=== PATIENT | female | born 1980 | race Caucasian/White ===

== ENCOUNTER 2020-09-02 11:57 | Inpatient (IN) | payer BC ==
[2020-09-02] MEDS ORDERED: ACETAMINOPHEN TAB 500 MG TAB PO STA (12:35)
[2020-09-02] MEDS ORDERED: IBUPROFEN 600 MG TAB PO STA (12:35)
--- NOTE | 2020-09-02 12:35 | ED ---
Fever HPI - General Chief Complaint: Shortness of Breath Stated Complaint: SOB Time Seen by Provider: 09/02/20 12:17 Source: patient, RN notes reviewed, old records reviewed Mode of arrival: wheelchair Limitations: no limitations - History of Present Illness Initial Comments: Luisana is a 40-year-old female DF regards to shortness of breath persistent david rtness of breath cough and congestion. No fevers no travel history no sick contacts. Patient has worsening shortness of breath fever started today symptoms started last week. Symptoms progressively worse MD Complaint: fever, malaise, weakness -: days(s) Temperature Source: subjective Context: multiple patients with similar symptoms Associated Symptoms: chills, myalgias, shortness of breath, nausea Treatments Prior to Arrival: none - Related Data Allergies Allergy/AdvReac Type Severity Reaction Status Date / Time No Known Allergies Allergy Verified 09/02/20 12:12 Review of Systems ROS Statement: Those systems with pertinent positive or pertinent negative responses have been documented in the HPI. ROS Other: All systems not noted in ROS Statement are negative. Past Medical History Past Medical History: Diabetes Mellitus History of Any Multi-Drug Resistant Organisms: None Reported Past Surgical History: Orthopedic Surgery Additional Past Surgical History / Comment(s): lt wrist Past Psychological History: No Psychological Hx Reported Smoking Status: Never smoker Past Alcohol Use History: None Reported Past Drug Use History: None Reported General Exam Limitations: no limitations General appearance: alert, in no apparent distress Head exam: Present: atraumatic, normocephalic, normal inspection Eye exam: Present: normal appearance, PERRL, EOMI. Absent: scleral icterus, conjunctival injection, periorbital swelling ENT exam: Present: normal exam, mucous membranes moist Neck exam: Present: normal inspection. Absent: tenderness, meningismus, lymphadenopathy Respiratory exam: Present: normal lung sounds bilaterally. Absent: respiratory distress, wheezes, rales, rhonchi, stridor Cardiovascular Exam: Present: regular rate, normal rhythm, normal heart sounds. Absent: systolic murmur, diastolic murmur, rubs, gallop, clicks GI/Abdominal exam: Present: soft, normal bowel sounds. Absent: distended, tenderness, guarding, rebound, rigid Extremities exam: Present: normal inspection, full ROM, normal capillary refill. Absent: tenderness, pedal edema, joint swelling, calf tenderness Back exam: Present: normal inspection Neurological exam: Present: alert, oriented X3, CN II-XII intact Psychiatric exam: Present: normal affect, normal mood Skin exam: Present: warm, dry, intact, normal color. Absent: rash Course Vital Signs 09/02/20 09/02/20 09/02/20 12:09 12:50 14:09 Temperature 103.4 F H 100.1 F H Pulse Rate 117 H 105 H 90 Respiratory 28 H 22 18 Rate Blood Pressure 131/75 124/89 105/75 O2 Sat by Pulse 89 L 94 L 98 Oximetry - Reevaluation(s) Reevaluation #1: 09/02/20 14:25 medical record is reviewed Reevaluation #2: 09/02/20 14:32 PATIENT IS FEELING BETTER HERE IN THE erWITH BLOOD PRESSURE CONTROL Reevaluation #3: 09/02/20 14:33 PATIENT INFORMED OF FINDINGS HERE IN THE er, QUESTIONS ANSWERED - Consultations Consultation #1: spoke w Dr Terence li for admission Medical Decision Making - Medical Decision Making 40 female with positive pneumonia rule out coronavirus will be admitted for breathing treatments as needed car door cardiopulmonary respiratory support his oxygen does tend to run low, does have pneumonia on x-ray - Lab Data Result diagrams: 09/02/20 12:27 09/02/20 12:27 Lab Results 09/02/20 09/02/20 09/02/20 Range/Units 12:27 12:27 12:27 WBC 5.0 (3.8-10.6) k/uL RBC 4.55 (3.80-5.40) m/uL Hgb 13.3 (11.4-16.0) gm/dL Hct 41.2 (34.0-46.0) % MCV 90.6 (80.0-100.0) fL MCH 29.2 (25.0-35.0) pg MCHC 32.2 (31.0-37.0) g/dL RDW 13.2 (11.5-15.5) % Plt Count 190 (150-450) k/uL Neutrophils % 80 % Lymphocytes % 13 % Monocytes % 5 % Eosinophils % 0 % Basophils % 1 % Neutrophils # 4.0 (1.3-7.7) k/uL Lymphocytes # 0.6 L (1.0-4.8) k/uL Monocytes # 0.2 (0-1.0) k/uL Eosinophils # 0.0 (0-0.7) k/uL Basophils # 0.0 (0-0.2) k/uL PT 9.8 (9.0-12.0) sec INR 0.9 (<1.2) APTT 23.3 (22.0-30.0) sec Sodium 137 (137-145) mmol/L Potassium 4.1 (3.5-5.1) mmol/L Chloride 101 (98-107) mmol/L Carbon Dioxide 27 (22-30) mmol/L Anion Gap 9 mmol/L BUN 14 (7-17) mg/dL Creatinine 0.71 (0.52-1.04) mg/dL Est GFR (CKD-EPI)AfAm >90 (>60 ml/min/1.73 sqM) Est GFR (CKD-EPI)NonAf >90 (>60 ml/min/1.73 sqM) Glucose 177 H (74-99) mg/dL Plasma Lactic Acid Gabo (0.7-2.0) mmol/L Calcium 8.9 (8.4-10.2) mg/dL Magnesium 2.0 (1.6-2.3) mg/dL Total Bilirubin 0.7 (0.2-1.3) mg/dL AST 65 H (14-36) U/L ALT 58 H (4-34) U/L Alkaline Phosphatase 62 (38-126) U/L Lactate Dehydrogenase 835 H (313-618) U/L C-Reactive Protein 33.9 H (<10.0) mg/L Total Protein 8.0 (6.3-8.2) g/dL Albumin 4.5 (3.5-5.0) g/dL 09/02/20 Range/Units 12:27 WBC (3.8-10.6) k/uL RBC (3.80-5.40) m/uL Hgb (11.4-16.0) gm/dL Hct (34.0-46.0) % MCV (80.0-100.0) fL MCH (25.0-35.0) pg MCHC (31.0-37.0) g/dL RDW (11.5-15.5) % Plt Count (150-450) k/uL Neutrophils % % Lymphocytes % % Monocytes % % Eosinophils % % Basophils % % Neutrophils # (1.3-7.7) k/uL Lymphocytes # (1.0-4.8) k/uL Monocytes # (0-1.0) k/uL Eosinophils # (0-0.7) k/uL Basophils # (0-0.2) k/uL PT (9.0-12.0) sec INR (<1.2) APTT (22.0-30.0) sec Sodium (137-145) mmol/L Potassium (3.5-5.1) mmol/L Chloride (98-107) mmol/L Carbon Dioxide (22-30) mmol/L Anion Gap mmol/L BUN (7-17) mg/dL Creatinine (0.52-1.04) mg/dL Est GFR (CKD-EPI)AfAm (>60 ml/min/1.73 sqM) Est GFR (CKD-EPI)NonAf (>60 ml/min/1.73 sqM) Glucose (74-99) mg/dL Plasma Lactic Acid Gabo 2.5 H* (0.7-2.0) mmol/L Calcium (8.4-10.2) mg/dL Magnesium (1.6-2.3) mg/dL Total Bilirubin (0.2-1.3) mg/dL AST (14-36) U/L ALT (4-34) U/L Alkaline Phosphatase (38-126) U/L Lactate Dehydrogenase (313-618) U/L C-Reactive Protein (<10.0) mg/L Total Protein (6.3-8.2) g/dL Albumin (3.5-5.0) g/dL - EKG Data -: EKG Interpreted by Me (EKG is sinus tachycardia 106 RI 140 QRS 88) - Radiology Data Radiology results: report reviewed (chest x-rays negative for acute disease), image reviewed Critical Care Time Critical Care Time: Yes Total Critical Care Time: 31 Disposition Clinical Impression: Fever, Community acquired pneumonia, Hypoxia Disposition: ADMITTED IP TO THIS [facility] Condition: Fair Is patient prescribed a controlled substance at d/c from ED?: No Referrals: Thomas Pratt DO [Primary Care Provider] - 1-2 days
--- NOTE | 2020-09-02 13:00 | XR ---
EXAMINATION TYPE: XR chest 1V portable DATE OF EXAM: 09/02/2020 COMPARISON: NONE HISTORY: Suspected Covid 19 pneumonia, weakness and difficulty breathing, fever TECHNIQUE: Single frontal view of the chest is obtained. FINDINGS: Lung volumes are low and the patient is rotated. Patchy bilateral increased density presen t within the lungs. Heart is within normal limits for size accounting for technique, rotation. No karina dent pneumothorax or pleural effusion. IMPRESSION: Findings could be indicative of pneumonia. Expiratory rotated exam.
[2020-09-02 13:04] LABS: Basophils % (A) 1 %; Eosinophils % (A) 0 %; HCT 41.2 % (34.0-46.0); HGB 13.3 gm/dL (11.4-16.0); Lymphocytes # (A) 0.6 k/uL (1.0-4.8); Lymphocytes % (A) 13 %; MCH 29.2 pg (25.0-35.0); MCHC 32.2 g/dL (31.0-37.0); MCV 90.6 fL (80.0-100.0); Mean Platelet Volume 10.1; Monocytes # (A) 0.2 k/uL (0-1.0); Monocytes % (A) 5 %; Neutrophils % (A) 80 %; Platelet Count 190 k/uL (150-450); RBC 4.55 m/uL (3.80-5.40); RDW 13.2 % (11.5-15.5)
[2020-09-02 13:05] LABS: INR 0.9 (<1.2); Partial Thromboplastin Time 23.3 sec (22.0-30.0); Prothrombin Time 9.8 sec (9.0-12.0)
[2020-09-02 13:13] LABS: ALT 58 U/L (4-34); AST 65 U/L (14-36); African American GFR (CKD) >90 (>60 ml/min/1.73 sqM); Albumin 4.5 g/dL (3.5-5.0); Alkaline Phosphatase 62 U/L (38-126); Anion Gap 9 mmol/L; Blood Urea Nitrogen 14 mg/dL (7-17); C Reactive Protein 33.9 mg/L (<10.0); Calcium 8.9 mg/dL (8.4-10.2); Carbon Dioxide 27 mmol/L (22-30); Chloride 101 mmol/L (98-107); Glucose 177 mg/dL (74-99); LDH 835 U/L (313-618); Non-African American GFR(CKD) >90 (>60 ml/min/1.73 sqM); Sodium 137 mmol/L (137-145); Total Bilirubin 0.7 mg/dL (0.2-1.3)
[2020-09-02 13:20] LABS: Potassium 4.1 mmol/L (3.5-5.1)
[2020-09-02] MEDS ORDERED: AZITHROMYCIN 500 MG in SODIUM CHLORIDE 0.9% 250 ML IVPB STA (14:19)
[2020-09-02] MEDS ORDERED: PNEUMONIA PROTOCOL UTILIZED 1 EACH MISC PO PRN (14:19)
[2020-09-02] MEDS ORDERED: SODIUM CHLORIDE 0.9% 1,000 ML IV STA (14:23)
[2020-09-02] MEDS ORDERED: SODIUM CHLORIDE 0.9% 500 ML 500 ML IV STA (14:23)
[2020-09-02] MEDS: SODIUM CHLORIDE 0.9% 1,000 ML IV SCH (15:10)
[2020-09-02] MEDS ORDERED: IPRATROPIUM-ALBUTEROL 3 ML NEB INHALATION SCH (16:00)
[2020-09-02] MEDS: ALBUTEROL HFA INHALER INHALATION SCH ×2 (16:56→19:35)
--- NOTE | 2020-09-02 17:50 | P.CNPUL ---
History of Present Illness Consult date: 09/02/20 Requesting physician: Thomas Pratt Reason for consult: abnormal CXR/CT Chief complaint: Shortness of breath, cough, fever History of present illness: This is a very pleasant 40-year-old female patient who follows with Dr. Pratt as her primary care provider. No significant past medical history. No pulmonary medications. She presented here to the emergency room today with complaints of increasing shortness of breath, cough congestion. Symptoms started approximately 1 week ago. She has had some fever or malaise and weakness as well. She is seen today in consultation in the emergency room. She is currently sitting up in the stretcher. Awake and alert in no acute distress. Initial O2 saturation on room air 89%. Currently in the 90s on 2 L/m per nasal cannula. T-max 103.4. Currently 100.1. Chest x-ray reveals bilateral patchy increased density within the lungs. White count 5.0. Hemoglobin 13.3. Sodium 137. Potassium 4.1. Creatinine 0.71. Initial lactic acid 2.5 currently 0.8. Glucose 177. LDH 835. C-reactive protein 33.9. Blood cultures pending. Anderson virus by PCR pending. She's been initiated on ceftriaxone, azithromycin, 0.9 normal saline at 100 ML's per hour. Review of Systems REVIEW OF SYSTEMS: CONSTITUTIONAL: Weakness, fatigue, fevers. Denies any recent significant weight loss or weight gain. EYES: Denies change in vision. EARS, NOSE, MOUTH, THROAT: Denies headaches, denies sore throat. CARDIOVASCULAR: Denies chest pain, palpitations or syncopal episodes. RESPIRATORY: Positive for shortness of breath, cough, congestion no hemoptysis. GASTROINTESTINAL: Denies change in appetite, denies abdominal pain GENITOURINARY: Denies hematuria, denies infections. MUSKULOSKELETAL: Denies pain, denies swelling. INTEGUMENTARY: Denies rash, denies eczema. NEUROLOGICAL: Denies recent memory loss, no recent seizure activity. PSYCHIATRIC: Denies anxiety, denies depression. HEMATOLOGIC/LYMPHATIC: Denies anemia, denies enlarged lymph nodes. Past Medical History Past Medical History: Diabetes Mellitus History of Any Multi-Drug Resistant Organisms: None Reported Past Surgical History: Orthopedic Surgery Additional Past Surgical History / Comment(s): lt wrist Past Psychological History: No Psychological Hx Reported Smoking Status: Never smoker Past Alcohol Use History: None Reported Past Drug Use History: None Reported Medications and Allergies Home Medications Medication Instructions Recorded Confirmed Type No Known Home Medications 09/02/20 09/02/20 History Allergies Allergy/AdvReac Type Severity Reaction Status Date / Time No Known Allergies Allergy Verified 09/02/20 15:38 Physical Exam Vitals: Vital Signs Temp Pulse Resp BP Pulse Ox 09/02/20 16:06 77 18 107/76 96 09/02/20 14:09 100.1 F H 90 18 105/75 98 09/02/20 12:50 105 H 22 124/89 94 L 09/02/20 12:09 103.4 F H 117 H 28 H 131/75 89 L Intake and Output 09/02/20 09/02/20 09/02/20 06:59 14:59 22:59 Other: Weight 113.398 kg GENERAL EXAM: Alert, pleasant 40-year-old female patient, on 2 L nasal cannula, comfortable in no apparent distress. HEAD: Normocephalic. EYES: Normal reaction of pupils, equal size. NOSE: Clear with pink turbinates. THROAT: No erythema or exudates. NECK: No masses, no JVD. CHEST: No chest wall deformity. LUNGS: Equal air entry with scattered rhonchi bilaterally. CVS: S1 and S2 normal with no audible murmur, regular rhythm. ABDOMEN: No hepatosplenomegaly, normal bowel sounds, no guarding or rigidity. SPINE: No scoliosis or deformity SKIN: No rashes CENTRAL NERVOUS SYSTEM: No focal deficits, tone is normal in all 4 extremities. EXTREMITIES: There is no peripheral edema. No clubbing, no cyanosis. Peripheral pulses are intact. Results - Laboratory Findings CBC and BMP: 09/02/20 12:27 09/02/20 12:27 PT/INR, D-dimer PT 9.8 sec (9.0-12.0) 09/02/20 12:27 INR 0.9 (<1.2) 09/02/20 12:27 Abnormal lab findings: Abnormal Labs 09/02/20 09/02/20 09/02/20 12:27 12:27 12:27 Lymphocytes # 0.6 L Glucose 177 H Plasma Lactic Acid Gabo 2.5 H* AST 65 H ALT 58 H Lactate Dehydrogenase 835 H C-Reactive Protein 33.9 H - Diagnostic Findings Chest x-ray: image reviewed (Bilateral patchy opacities) Assessment and Plan Assessment: 1 Acute hypoxic respiratory failure secondary to suspected CoVID 19 pneumonitis 2 Febrile illness secondary to above 3 Elevated inflammatory markers secondary to above Plan: The patient was seen and evaluated by Dr. Rocha Chest x-ray and labs reviewed Covid 19 screen pending We'll initiate Remdesivir, dexamethasone Add vitamin C, D, zinc, Pepcid, melatonin Continue isolation precautions We will continue to follow and make further recommendations based on her clinical status I, the cosigning physician, performed a history & physical examination of the patient. Lungs sounds with bilateral scattered rhonchi. Maintaining good O2 saturations in the 90s on 2 L/m per nasal cannula. I discussed the assessment and plan of care with my nurse practitioner, Molly Clifford. I attest to the above consultation as dictated by her. Time with Patient: Greater than 30
[2020-09-02] MEDS: CHOLECALCIFEROL 1,000 UNIT TAB PO SCH (19:35)
[2020-09-02] MEDS: FAMOTIDINE 20 MG TAB PO SCH (19:36)
[2020-09-02] MEDS: ENOXAPARIN 40 MG/0.4 ML SYRINGE SQ SCH (19:36)
[2020-09-02] MEDS: ASCORBIC ACID 500 MG TAB PO SCH (19:36)
[2020-09-02] MEDS ORDERED: REMDESIVIR (EUA) 200 MG in SODIUM CHLORIDE 0.9% 250 ML IVPB ONE (21:00)
[2020-09-02] MEDS: MELATONIN 5 MG TABLET PO SCH (21:31)
[2020-09-02] MEDS: dexAMETHasone 2 MG TAB PO SCH (21:31)
[2020-09-02] MEDS: ZINC SULFATE 220 MG CAP PO SCH (21:31)
[2020-09-03] MEDS: ALBUTEROL HFA INHALER INHALATION SCH ×4 (01:12→19:55)
[2020-09-03] MEDS: SODIUM CHLORIDE 0.9% 1,000 ML IV SCH ×3 (01:20→23:16)
[2020-09-03] MEDS ORDERED: ACETAMINOPHEN TAB 325 MG TAB PO PRN (02:24)
[2020-09-03 07:11] LABS: Glucose,Whole Blood 207 mg/dL (75-99)
[2020-09-03] MEDS: ASCORBIC ACID 500 MG TAB PO SCH (08:32)
[2020-09-03] MEDS: CHOLECALCIFEROL 1,000 UNIT TAB PO SCH (08:32)
[2020-09-03] MEDS: ZINC SULFATE 220 MG CAP PO SCH (08:32)
[2020-09-03] MEDS: ENOXAPARIN 40 MG/0.4 ML SYRINGE SQ SCH (08:32)
[2020-09-03] MEDS: dexAMETHasone 2 MG TAB PO SCH (08:32)
[2020-09-03] MEDS: FAMOTIDINE 20 MG TAB PO SCH (08:32)
--- NOTE | 2020-09-03 09:58 | XR ---
EXAMINATION TYPE: XR chest 1V portable DATE OF EXAM: 09/03/2020 COMPARISON: 09/02/2020 HISTORY: Shortness of breath TECHNIQUE: Single frontal view of the chest is obtained. FINDINGS: Limited inspiration with cardiomegaly and multifocal areas of consolidation with pleural e ffusion. No pneumothorax. Findings are stable. IMPRESSION: Stable multifocal changes correlate for multifocal pneumonia. Underlying CHF not exclude d.
[2020-09-03 11:40] LABS: Glucose,Whole Blood 224 mg/dL (75-99)
--- NOTE | 2020-09-03 13:17 | P.HPIM ---
History of Present Illness This is a pleasant 40 years old female with past medical history of diabetes mellitus not on home medication. Presents yesterday to the emergency room with fever and shortness of breath with chest congestion Vitas looks stable currently however patient was febrile with 1 or 3.4 on admission . Currently her oxygen saturation is 92% and 2-3 L oxygen via nasal cannula. She still have some orthopnea and dyspnea and she looks generally weak with malaise. Labs look unremarkable including CBC except for leukopenia with 0.6K. D-dimer is negative at 0.28. proCalcitonin is negative at 0.09. BMP is unremarkable liver enzymes are mildly elevated with AST 65 and ALT 58. C-reactive protein is elevated as well as 33.9 Chest x-ray showing multifocal pneumonia. EKG: Sinus tachycardia at 106, no significant ST-T changes covid testis is pending patient is a started on Remdesivir, dexamethasone and zinc sulfate Review of Systems CONSTITUTIONAL: No fever, no malaise, no fatigue. HEENT: No recent visual problems or hearing problems. Denied any sore throat. CARDIOVASCULAR: No orthopnea, PND, no palpitations, no syncope. PULMONARY: No chest wall tenderness, no hemoptysis. GASTROINTESTINAL: No diarrhea, no nausea, no vomiting, no abdominal pain. Normoactive bowel sounds. NEUROLOGICAL: No headaches, no weakness, no numbness. HEMATOLOGICAL: Denies any bleeding or petechiae. GENITOURINARY: Denies any burning micturition, frequency, or urgency. MUSCULOSKELETAL/RHEUMATOLOGICAL: Denies any joint pain, swelling, or any muscle pain. ENDOCRINE: Denies any polyuria or polydipsia. Past Medical History Past Medical History: Diabetes Mellitus History of Any Multi-Drug Resistant Organisms: None Reported Past Surgical History: Orthopedic Surgery Additional Past Surgical History / Comment(s): lt wrist Past Anesthesia/Blood Transfusion Reactions: No Reported Reaction Past Psychological History: No Psychological Hx Reported Smoking Status: Never smoker Past Alcohol Use History: None Reported Past Drug Use History: None Reported - Past Family History Father Family Medical History: Congestive Heart Failure (CHF) Additional Family Medical History / Comment(s): AAA Medications and Allergies Home Medications Medication Instructions Recorded Confirmed Type No Known Home Medications 09/02/20 09/02/20 History Allergies Allergy/AdvReac Type Severity Reaction Status Date / Time No Known Allergies Allergy Verified 09/02/20 15:38 Physical Exam Vitals: Vital Signs Temp Pulse Pulse Resp BP BP Pulse Ox 09/03/20 07:00 98.3 F 84 115/77 92 L 09/03/20 06:06 98.4 F 09/03/20 01:34 101.7 F H 103 H 126/83 91 L 09/02/20 21:08 98.8 F 87 124/87 95 09/02/20 20:34 99 F 74 20 110/72 98 09/02/20 18:48 82 18 114/76 98 09/02/20 16:06 77 18 107/76 96 09/02/20 14:09 100.1 F H 90 18 105/75 98 Intake and Output 09/02/20 09/03/20 09/03/20 22:59 06:59 14:59 Other: Weight 113.398 kg GENERAL: The patient is alert and oriented x3, not in any acute distress. Well developed, well nourished. HEENT: Pupils are round and equally reacting to light. EOMI. No scleral icterus. No conjunctival pallor. Normocephalic, atraumatic. No pharyngeal erythema. No thyromegaly. CARDIOVASCULAR: S1 and S2 present. No murmurs, rubs, or gallops. -PULMONARY: Chest is clear to auscultation, no wheezing . Bilateral scattered crepitation ABDOMEN: Soft, nontender, nondistended, normoactive bowel sounds. No palpable organomegaly. MUSCULOSKELETAL: No joint swelling or deformity. EXTREMITIES: No cyanosis, clubbing, or pedal edema. NEUROLOGICAL: Gross neurological examination did not reveal any focal deficits. SKIN: No rashes. No petechiae Results CBC & Chem 7: 09/02/20 12:27 09/02/20 12:27 Labs: Abnormal Lab Results - Last 24 Hours (Table) 09/02/20 09/02/20 09/03/20 Range/Units 12:27 12:27 07:00 Glucose 177 H (74-99) mg/dL POC Glucose (mg/dL) 207 H (75-99) mg/dL Plasma Lactic Acid Gabo 2.5 H* (0.7-2.0) mmol/L AST 65 H (14-36) U/L ALT 58 H (4-34) U/L Lactate Dehydrogenase 835 H (313-618) U/L C-Reactive Protein 33.9 H (<10.0) mg/L 09/03/20 Range/Units 11:39 Glucose (74-99) mg/dL POC Glucose (mg/dL) 224 H (75-99) mg/dL Plasma Lactic Acid Gabo (0.7-2.0) mmol/L AST (14-36) U/L ALT (4-34) U/L Lactate Dehydrogenase (313-618) U/L C-Reactive Protein (<10.0) mg/L Thrombosis Risk Factor Assmnt - Choose All That Apply Any of the Below Risk Factors Present?: Yes Each Factor Represents 1 point: Age 41-60 years, Obesity (BMI >25) Other Risk Factors: No Other congenital or acquired thrombophilia - If yes, enter type in comment: No Thrombosis Risk Factor Assessment Total Risk Factor Score: 2 Thrombosis Risk Factor Assessment Level: Low Risk Assessment and Plan Assessment: Acute covid infection Increase inflammatory markers Hyperglycemia, and review of history of diabetes mellitus Plan: This is a pleasant 38 years old female who presents with bilateral covid pneumonia. However official covid this is still pending. Continue with Remdesivir, dexamethasone and zinc sulfate Check hemoglobin A1c. Monitor liver enzymes Labs and medication were reviewed.. Continue same treatment. Continue with symptomatic treatment. Resume home medication. Monitor lytes and vitals. DVT and GI prophylaxis. Further recommendations depends on the clinical course of the patient DVT prophylaxis: Subcutaneous heparin GI Prophylaxis: Pepcid PT/OT: Pending Prognosis is guarded
[2020-09-03] MEDS ORDERED: AZITHROMYCIN 500 MG TAB PO SCH (16:00)
--- NOTE | 2020-09-03 16:19 | P.PN ---
Subjective Progress Note Date: 09/03/20 Principal diagnosis: Acute CoVID 19 pneumonitis This is a very pleasant 40-year-old female patient who follows with Dr. Pratt as her primary care provider. No significant past medical history. No pulmonary medications. She presented here to the emergency room today with complaints of increasing shortness of breath, cough congestion. Symptoms started approximately 1 week ago. She has had some fever or malaise and weakness as well. She is seen today in consultation in the emergency room. She is currently sitting up in the stretcher. Awake and alert in no acute distress. Initial O2 saturation on room air 89%. Currently in the 90s on 2 L/m per nasal cannula. T-max 103.4. Currently 100.1. Chest x-ray reveals bilateral patchy increased density within the lungs. White count 5.0. Hemoglobin 13.3. Sodium 137. Potassium 4.1. Creatinine 0.71. Initial lactic acid 2.5 currently 0.8. Glucose 177. LDH 835. C-reactive protein 33.9. Blood cultures pending. C nancy virus by PCR pending. She's been initiated on ceftriaxone, azithromycin, 0.9 normal saline at 100 ML's per hour. The patient is seen today 09/03/2020 in follow-up on the regular medical floor. She is currently resting comfortably in bed. Awake and alert in no acute distress. No real improvement today compared to yesterday. Still dyspneic with minimal exertion. Today's is a dry nonproductive cough. She is now requiring 5 L high flow nasal cannula to maintain O2 saturation in the 90s. She has been afebrile. Chest x-ray continues to show evidence of multifocal pneumonia. This is day 2 of from to severe. She is continued on Pepcid, Lovenox, zinc, vitamin A, vitamin C, melatonin. Blood glucose 224. Objective - Vital Signs Vital signs: Vital Signs Temp 98.7 F 09/03/20 15:00 Pulse 72 09/03/20 15:00 Resp 20 09/02/20 20:34 BP 152/64 09/03/20 15:00 Pulse Ox 89 L 09/03/20 15:00 Intake & Output 09/02/20 09/03/20 09/03/20 18:59 06:59 18:59 Weight 113.398 kg 113.398 kg Other: # Voids 1 - Exam GENERAL EXAM: Alert, pleasant 40-year-old female patient, on 5 L nasal cannula, fairly comfortable in mild respiratory distress. HEAD: Normocephalic. EYES: Normal reaction of pupils, equal size. NOSE: Clear with pink turbinates. THROAT: No erythema or exudates. NECK: No masses, no JVD. CHEST: No chest wall deformity. LUNGS: Equal air entry with scattered rhonchi bilaterally. CVS: S1 and S2 normal with no audible murmur, regular rhythm. ABDOMEN: No hepatosplenomegaly, normal bowel sounds, no guarding or rigidity. SPINE: No scoliosis or deformity SKIN: No rashes CENTRAL NERVOUS SYSTEM: No focal deficits, tone is normal in all 4 extremities. EXTREMITIES: There is no peripheral edema. No clubbing, no cyanosis. Peripheral pulses are intact. - Labs CBC & Chem 7: 09/02/20 12:27 09/02/20 12:27 Labs: Abnormal Lab Results - Last 24 Hours (Table) 09/03/20 09/03/20 Range/Units 07:00 11:39 POC Glucose (mg/dL) 207 H 224 H (75-99) mg/dL Microbiology - Last 24 Hours (Table) 09/02/20 12:27 Blood Culture - Preliminary Blood No Growth after 24 hours Assessment and Plan Assessment: 1 Acute hypoxic respiratory failure secondary to suspected CoVID 19 pneumonitis 2 Febrile illness secondary to above 3 Elevated inflammatory markers secondary to above Plan: The patient was seen and evaluated by Dr. Rocha Chest x-ray and labs reviewed Covid 19 screen still pending Increased oxygen requirements We'll continue Remdesivir, dexamethasone, Lovenox Continue vitamin C, D, zinc, Pepcid, melatonin Continue isolation precautions Repeat chest x-ray and inflammatory markers in the a.m. Titrate the FiO2 as tolerated We will continue to follow and make further recommendations based on her clinical status I, the cosigning physician, performed a history & physical examination of the patient. Lungs sounds with bilateral scattered rhonchi. Maintaining good O2 saturations in the 90s on 2 L/m per nasal cannula. I discussed the assessment and plan of care with my nurse practitioner, Molly Clifford. I attest to the above note as dictated by her.
[2020-09-03 16:41] LABS: Glucose,Whole Blood 247 mg/dL (75-99)
[2020-09-03 20:29] LABS: Glucose,Whole Blood 234 mg/dL (75-99)
[2020-09-03] MEDS: REMDESIVIR (EUA) 100 MG in SODIUM CHLORIDE 0.9% 250 ML IVPB SCH (21:13)
[2020-09-03] MEDS: MELATONIN 5 MG TABLET PO SCH (21:13)
[2020-09-04] MEDS ORDERED: VANCOMYCIN IV PER PHARMACY 1 EACH MISC MISCELLANE PRN (04:54)
[2020-09-04] MEDS: VANCOMYCIN 1,750 MG in SODIUM CHLORIDE 0.9% 500 ML 500 ML IVPB SCH ×2 (06:02→16:33)
[2020-09-04] MEDS: SODIUM CHLORIDE 0.9% 1,000 ML IV SCH ×2 (06:02→16:33)
[2020-09-04 07:35] LABS: Glucose,Whole Blood 189 mg/dL (75-99)
[2020-09-04] MEDS: dexAMETHasone 2 MG TAB PO SCH (08:01)
[2020-09-04] MEDS: ASCORBIC ACID 500 MG TAB PO SCH (08:01)
[2020-09-04] MEDS: ZINC SULFATE 220 MG CAP PO SCH (08:01)
[2020-09-04] MEDS: CHOLECALCIFEROL 1,000 UNIT TAB PO SCH (08:01)
[2020-09-04] MEDS: ENOXAPARIN 40 MG/0.4 ML SYRINGE SQ SCH (08:01)
[2020-09-04] MEDS: FAMOTIDINE 20 MG TAB PO SCH (08:01)
[2020-09-04] MEDS: ALBUTEROL HFA INHALER INHALATION SCH ×4 (08:19→18:52)
[2020-09-04 08:57] LABS: MCH 30.4 pg (25.0-35.0); MCHC 33.2 g/dL (31.0-37.0); MCV 91.5 fL (80.0-100.0); RBC 3.94 m/uL (3.80-5.40); RDW 13.3 % (11.5-15.5); WBC 4.5 k/uL (3.8-10.6)
[2020-09-04 09:30] LABS: African American GFR (CKD) 123.9 (60.0-200.0); Albumin/Globulin Ratio 1.9 (1.60-3.17); Anion Gap 8.8 mmol/L (4.00-12.00); BUN/Creat Ratio 18.57 Ratio (12.00-20.00); C Reactive Protein 7.4 mg/dL (0.0-0.8); Calcium 8.1 mg/dL (8.7-10.3); Carbon Dioxide 24.2 mmol/L (21.6-31.8); Globulin 2.1 g/dL (1.6-3.3); Magnesium 2.2 mg/dL (1.5-2.4); Non-African American GFR(CKD) 106.9 (60.0-200.0); Potassium 3.9 mmol/L (3.5-5.5); Total Bilirubin 0.5 mg/dL (0.3-1.2); Total Protein 6.1 g/dL (6.2-8.2)
--- NOTE | 2020-09-04 10:30 | XR ---
EXAMINATION TYPE: XR chest 1V portable DATE OF EXAM: 09/04/2020 COMPARISON: Prior chest x-ray 09/03/2020 HISTORY: Covid pneumonia TECHNIQUE: Single frontal view of the chest is obtained. FINDINGS: Bilateral patchy density persists. No pneumothorax or pleural effusion. Heart size is stab le. IMPRESSION: Findings compatible with patient's history of pneumonia.
[2020-09-04 11:51] LABS: Glucose,Whole Blood 189 mg/dL (75-99)
[2020-09-04 12:57] LABS: Hemoglobin A1C 8.4 % (4.0-6.0)
[2020-09-04 13:31] LABS: Lymphocytes # (M) 0.63 k/uL (1.0-4.8); Monocytes # (M) 0.18 k/uL (0-1.0); Neutrophils # (M) 3.69 k/uL (1.3-7.7); Neutrophils % (M) 82 %; Nucleated Red Blood Cells 0 /100 WBC (0-0); Total Cells Counted 100
--- NOTE | 2020-09-04 16:33 | P.PN ---
Subjective Progress Note Date: 09/04/20 Principal diagnosis: Acute CoVID 19 pneumonitis This is a very pleasant 40-year-old female patient who follows with Dr. Pratt as her primary care provider. No significant past medical history. No pulmonary medications. She presented here to the emergency room today with complaints of increasing shortness of breath, cough congestion. Symptoms started approximately 1 week ago. She has had some fever or malaise and weakness as well. She is seen today in consultation in the emergency room. She is currently sitting up in the stretcher. Awake and alert in no acute distress. Initial O2 saturation on room air 89%. Currently in the 90s on 2 L/m per nasal cannula. T-max 103.4. Currently 100.1. Chest x-ray reveals bilateral patchy increased density within the lungs. White count 5.0. Hemoglobin 13.3. Sodium 137. Potassium 4.1. Creatinine 0.71. Initial lactic acid 2.5 currently 0.8. Glucose 177. LDH 835. C-reactive protein 33.9. Blood cultures pending. C nancy virus by PCR pending. She's been initiated on ceftriaxone, azithromycin, 0.9 normal saline at 100 ML's per hour. The patient is seen today 09/03/2020 in follow-up on the regular medical floor. She is currently resting comfortably in bed. Awake and alert in no acute distress. No real improvement today compared to yesterday. Still dyspneic with minimal exertion. Today's is a dry nonproductive cough. She is now requiring 5 L high flow nasal cannula to maintain O2 saturation in the 90s. She has been afebrile. Chest x-ray continues to show evidence of multifocal pneumonia. This is day 2 of from to severe. She is continued on Pepcid, Lovenox, zinc, vitamin A, vitamin C, melatonin. Blood glucose 224. The patient is seen today 09/04/2020 in follow-up on the regular medical floor. She is awake and alert in no acute distress. Breathing about the same today as compared to yesterday. No significant improvement yet. She is maintaining O2 saturations in the 90s on 2 L/m per nasal cannula. She's afebrile. Chest x-ray continues to show bilateral patchy densities. White count 4.5. Hemoglobin 12.0. Lymphocytes 0.6. Glucose 189. This is day #3 of Giovanniivir. She is cont inued on Pepcid, Lovenox, zinc, vitamin A, vitamin C, melatonin. Objective - Vital Signs Vital signs: Vital Signs Temp 98.2 F 09/04/20 15:00 Pulse 79 09/04/20 15:00 Resp 20 09/04/20 15:00 BP 132/82 09/04/20 15:00 Pulse Ox 92 L 09/04/20 15:00 Intake & Output 09/03/20 09/04/20 09/04/20 18:59 06:59 18:59 Intake Total 880 Balance 880 Intake: Oral 880 Other: Voiding Method Toilet # Voids 1 1 2 - Exam GENERAL EXAM: Alert, pleasant 40-year-old female patient, on 2 L nasal cannula, fairly comfortable in no acute distress. HEAD: Normocephalic. EYES: Normal reaction of pupils, equal size. NOSE: Clear with pink turbinates. THROAT: No erythema or exudates. NECK: No masses, no JVD. CHEST: No chest wall deformity. LUNGS: Equal air entry with scattered rhonchi bilaterally. CVS: S1 and S2 normal with no audible murmur, regular rhythm. ABDOMEN: No hepatosplenomegaly, normal bowel sounds, no guarding or rigidity. SPINE: No scoliosis or deformity SKIN: No rashes CENTRAL NERVOUS SYSTEM: No focal deficits, tone is normal in all 4 extremities. EXTREMITIES: There is no peripheral edema. No clubbing, no cyanosis. Peripheral pulses are intact. - Labs CBC & Chem 7: 09/04/20 07:55 09/04/20 05:48 Labs: Abnormal Lab Results - Last 24 Hours (Table) 09/03/20 09/03/20 09/04/20 Range/Units 16:40 20:26 05:48 Lymphocytes # (Manual) (1.0-4.8) k/uL Glucose (70-110) mg/dL POC Glucose (mg/dL) 247 H 234 H (75-99) mg/dL Hemoglobin A1c 8.4 H (4.0-6.0) % Calcium (8.7-10.3) mg/dL Lactate Dehydrogenase (120-246) U/L C-Reactive Protein (0.0-0.8) mg/dL Total Protein (6.2-8.2) g/dL 09/04/20 09/04/20 09/04/20 Range/Units 05:48 07:30 07:55 Lymphocytes # (Manual) 0.63 L (1.0-4.8) k/uL Glucose 198 H (70-110) mg/dL POC Glucose (mg/dL) 189 H (75-99) mg/dL Hemoglobin A1c (4.0-6.0) % Calcium 8.1 L (8.7-10.3) mg/dL Lactate Dehydrogenase 249 H (120-246) U/L C-Reactive Protein 7.4 H (0.0-0.8) mg/dL Total Protein 6.1 L (6.2-8.2) g/dL 09/04/20 Range/Units 11:49 Lymphocytes # (Manual) (1.0-4.8) k/uL Glucose (70-110) mg/dL POC Glucose (mg/dL) 189 H (75-99) mg/dL Hemoglobin A1c (4.0-6.0) % Calcium (8.7-10.3) mg/dL Lactate Dehydrogenase (120-246) U/L C-Reactive Protein (0.0-0.8) mg/dL Total Protein (6.2-8.2) g/dL Microbiology - Last 24 Hours (Table) 09/02/20 14:50 Blood Culture Gram Stain - Preliminary Blood 09/02/20 12:27 Blood Culture - Preliminary Blood No Growth after 48 hours 09/02/20 14:50 Blood Culture - Final Blood 09/02/20 14:30 Blood Culture - Final Blood 09/02/20 14:30 Blood Culture Gram Stain - Preliminary Blood Assessment and Plan Assessment: 1 Acute hypoxic respiratory failure secondary to suspected CoVID 19 pneumonitis, initiated on Remdesivir 09/02/2020 2 Febrile illness secondary to above 3 Elevated inflammatory markers secondary to above Plan: The patient was seen and evaluated by Dr. Rocha Chest x-ray and labs reviewed Covid 19 screen still pending from 09/02/2020 We'll continue Remdesivir, dexamethasone, Lovenox Continue vitamin C, D, zinc, Pepcid, melatonin Continue isolation precautions Titrate the FiO2 as tolerated We will continue to follow and make further recommendations based on her clinical status I, the cosigning physician, performed a history & physical examination of the patient. Lungs sounds with bilateral scattered rhonchi. Maintaining good O2 saturations in the 90s on 2 L/m per nasal cannula. I discussed the assessment and plan of care with my nurse practitioner, Molly Clifford. I attest to the above note as dictated by her.
[2020-09-04 17:08] LABS: Glucose,Whole Blood 222 mg/dL (75-99)
[2020-09-04 20:42] LABS: Glucose,Whole Blood 211 mg/dL (75-99)
[2020-09-04] MEDS: REMDESIVIR (EUA) 100 MG in SODIUM CHLORIDE 0.9% 250 ML IVPB SCH (20:50)
[2020-09-04] MEDS: INSULIN ASPART (NovoLOG) 100 UNIT/ML VIAL SQ SCH (20:51)
[2020-09-04] MEDS: MELATONIN 5 MG TABLET PO SCH (22:12)
--- NOTE | 2020-09-04 23:51 | P.PN ---
Subjective This is a pleasant 40 years old female with past medical history of diabetes mellitus not on home medication. Presents yesterday to the emergency room with fever and shortness of breath with chest congestion Vitas looks stable currently however patient was febrile with 1 or 3.4 on admission . Currently her oxygen saturation is 92% and 2-3 L oxygen via nasal cannula. She still have some orthopnea and dyspnea and she looks generally weak with malaise. Labs look unremarkable including CBC except for leukopenia with 0.6K. D-dimer is negative at 0.28. proCalcitonin is negative at 0.09. BMP is unremarkable liver enzymes are mildly elevated with AST 65 and ALT 58. C-reactive protein is elevated as well as 33.9 Chest x-ray showing multifocal pneumonia. EKG: Sinus tachycardia at 106, no significant ST-T changes covid testis is pending patient is a started on Remdesivir, dexamethasone and zinc sulfate 09/04/2020 Patient's tremendous with dyspnea. She still feels well is an generally weak. She has a temperature of 98.1, fever subsided since admission so far. She is a slightly tachypneic on 20, blood pressure 125/80, she is saturating 92% on 4 L oxygen via nasal cannula. Showing lymphopenia, glucose is slightly elevated. BMP is unremarkable and inflammatory markers are slightly elevated. Blood culture showing coagulase-negative staph and diphtheroid species, patient was started on IV vancomycin. We will consult infectious disease as patient was significantly febrile of 103 upon admission. Patient hemoglobin A1c is 8.4%, glucose more than to 100. Creatinine and lactic acid is normal. Liver enzymes is back to normal as well Review of Systems CONSTITUTIONAL: No fever, no malaise, no fatigue. HEENT: No recent visual problems or hearing problems. Denied any sore throat. CARDIOVASCULAR: No orthopnea, PND, no palpitations, no syncope. PULMONARY: No chest wall tenderness, no hemoptysis. GASTROINTESTINAL: No diarrhea, no nausea, no vomiting, no abdominal pain. Normoactive bowel sounds. NEUROLOGICAL: No headaches, no weakness, no numbness. HEMATOLOGICAL: Denies any bleeding or petechiae. Active Medications Generic Name Dose Route Start Last Admin Trade Name Freq PRN Reason Stop Dose Admin Acetaminophen 650 mg 09/03/20 02:24 09/03/20 02:42 Acetaminophen Tab 325 Mg Tab PO 650 mg Q6HR PRN Administration Fever and/ or Pain Albuterol Sulfate 2 puff 09/02/20 17:00 09/04/20 18:52 Albuterol Hfa Inhaler INHALATION 2 puff RT-QID RIVKA Administration Ascorbic Acid 500 mg 09/02/20 18:00 09/04/20 08:01 Ascorbic Acid 500 Mg Tab PO 500 mg DAILY RIVKA Administration Cholecalciferol 1,000 unit 09/02/20 18:00 09/04/20 08:01 Cholecalciferol 1,000 Unit Tab PO 1,000 unit DAILY RIVKA Administration Dexamethasone 6 mg 09/02/20 18:00 09/04/20 08:01 Dexamethasone 2 Mg Tab PO 6 mg DAILY RIVKA Administration Enoxaparin Sodium 40 mg 09/02/20 18:15 09/04/20 08:01 Enoxaparin 40 Mg/0.4 Ml Syringe SQ 40 mg DAILY RIVKA Administration Famotidine 20 mg 09/02/20 18:00 09/04/20 08:01 Famotidine 20 Mg Tab PO 20 mg DAILY RIVKA Administration Sodium Chloride 1,000 mls @ 100 mls/hr 09/02/20 14:30 09/04/20 16:33 Saline 0.9% IV 100 mls/hr .Q10H RIVKA Administration Remdesivir 100 mg/ Sodium 250 mls @ 250 mls/hr 09/03/20 21:00 09/04/20 20:50 Chloride IVPB 09/06/20 21:59 250 mls/hr HS RIVKA Administration Vancomycin HCl 1,750 mg/ 500 mls @ 167 mls/hr 09/04/20 05:00 09/04/20 16:33 Sodium Chloride IVPB 167 mls/hr Q12H RIVKA Administration Insulin Aspart 0 unit 09/04/20 21:00 09/04/20 20:51 Insulin Aspart (Novolog) 100 Unit/Ml Vial SQ 4 unit ACHS RIVKA Administration Protocol Insulin Aspart 5 unit 09/05/20 07:30 Insulin Aspart (Novolog) 100 Unit/Ml Vial SQ AC-TID RIVKA Melatonin 5 mg 09/02/20 21:00 09/04/20 22:12 Melatonin 5 Mg Tablet PO 5 mg HS RIVKA Administration Miscellaneous Information 1 each 09/02/20 14:19 Pneumonia Protocol Utilized 1 Each Misc PO ONCE PRN Per Protocol Zinc Sulfate 220 mg 09/02/20 18:00 09/04/20 08:01 Zinc Sulfate 220 Mg Cap PO 220 mg DAILY RIVKA Administration Objective - Vital Signs Vital signs: Vital Signs Temp 98.1 F 09/04/20 07:00 Pulse 78 09/04/20 07:00 Resp 20 09/04/20 07:00 BP 118/74 09/04/20 07:00 Pulse Ox 93 L 09/04/20 07:00 Intake & Output 09/03/20 09/04/20 09/04/20 18:59 06:59 18:59 Intake Total 880 Balance 880 Intake: Oral 880 Other: Voiding Method Toilet # Voids 1 1 - Exam GENERAL: The patient is alert and oriented x3, not in any acute distress. Well developed, well nourished. HEENT: Pupils are round and equally reacting to light. EOMI. No scleral icterus. No conjunctival pallor. Normocephalic, atraumatic. No pharyngeal erythema. No thyromegaly. CARDIOVASCULAR: S1 and S2 present. No murmurs, rubs, or gallops. PULMONARY: Chest is clear to auscultation, no wheezing or crackles. ABDOMEN: Soft, nontender, nondistended, normoactive bowel sounds. No palpable organomegaly. MUSCULOSKELETAL: No joint swelling or deformity. EXTREMITIES: No cyanosis, clubbing, or pedal edema. NEUROLOGICAL: Gross neurological examination did not reveal any focal deficits. SKIN: No rashes. no petechiae. - Labs CBC & Chem 7: 09/04/20 07:55 09/04/20 05:48 Labs: Abnormal Lab Results - Last 24 Hours (Table) 09/03/20 09/03/20 09/04/20 Range/Units 16:40 20:26 05:48 Lymphocytes # (Manual) (1.0-4.8) k/uL Glucose (70-110) mg/dL POC Glucose (mg/dL) 247 H 234 H (75-99) mg/dL Hemoglobin A1c 8.4 H (4.0-6.0) % Calcium (8.7-10.3) mg/dL Lactate Dehydrogenase (120-246) U/L C-Reactive Protein (0.0-0.8) mg/dL Total Protein (6.2-8.2) g/dL 09/04/20 09/04/20 09/04/20 Range/Units 05:48 07:30 07:55 Lymphocytes # (Manual) 0.63 L (1.0-4.8) k/uL Glucose 198 H (70-110) mg/dL POC Glucose (mg/dL) 189 H (75-99) mg/dL Hemoglobin A1c (4.0-6.0) % Calcium 8.1 L (8.7-10.3) mg/dL Lactate Dehydrogenase 249 H (120-246) U/L C-Reactive Protein 7.4 H (0.0-0.8) mg/dL Total Protein 6.1 L (6.2-8.2) g/dL 09/04/20 Range/Units 11:49 Lymphocytes # (Manual) (1.0-4.8) k/uL Glucose (70-110) mg/dL POC Glucose (mg/dL) 189 H (75-99) mg/dL Hemoglobin A1c (4.0-6.0) % Calcium (8.7-10.3) mg/dL Lactate Dehydrogenase (120-246) U/L C-Reactive Protein (0.0-0.8) mg/dL Total Protein (6.2-8.2) g/dL Microbiology - Last 24 Hours (Table) 09/02/20 14:50 Blood Culture Gram Stain - Preliminary Blood 09/02/20 14:50 Blood Culture - Final Blood 09/02/20 14:30 Blood Culture - Final Blood 09/02/20 14:30 Blood Culture Gram Stain - Preliminary Blood 09/02/20 12:27 Blood Culture - Preliminary Blood No Growth after 24 hours Assessment and Plan Assessment: Acute covid infection, suspected, final result is pending Bacteremia with staph and diphtheroid species Increase inflammatory markers Hyperglycemia, and review of history of diabetes mellitus Plan: This is a pleasant 38 years old female who presents with bilateral covid pneumonia. However official covid this is still pending. Continue with Remdesivir, dexamethasone and zinc sulfate her pulmonary team service for following the case closely. Repeat blood culture to exclude contamination,. Start the patient on metformin and insulin sliding scale. Consult certified adapted physical educator Labs and medication were reviewed.. Continue same treatment. Continue with symptomatic treatment. Resume home medication. Monitor lytes and vitals. DVT and GI prophylaxis. Further recommendations depends on the clinical course of the patient DVT prophylaxis: Subcutaneous heparin GI Prophylaxis: Pepcid PT/OT: Pending Prognosis is guarded
[2020-09-05] MEDS: VANCOMYCIN 1,750 MG in SODIUM CHLORIDE 0.9% 500 ML 500 ML IVPB SCH (04:41)
[2020-09-05] MEDS: SODIUM CHLORIDE 0.9% 1,000 ML IV SCH ×3 (04:41→21:43)
[2020-09-05] MEDS ORDERED: INSULIN ASPART (NovoLOG) 100 UNIT/ML VIAL SQ SCH (07:30)
[2020-09-05 07:36] LABS: Glucose,Whole Blood 158 mg/dL (75-99)
[2020-09-05] MEDS: CHOLECALCIFEROL 1,000 UNIT TAB PO SCH (08:10)
[2020-09-05] MEDS: FAMOTIDINE 20 MG TAB PO SCH (08:10)
[2020-09-05] MEDS: ASCORBIC ACID 500 MG TAB PO SCH (08:11)
[2020-09-05] MEDS: dexAMETHasone 2 MG TAB PO SCH (08:11)
[2020-09-05] MEDS: ZINC SULFATE 220 MG CAP PO SCH (08:11)
[2020-09-05] MEDS: INSULIN ASPART (NovoLOG) 100 UNIT/ML VIAL SQ SCH ×4 (08:11→21:42)
[2020-09-05] MEDS: ENOXAPARIN 40 MG/0.4 ML SYRINGE SQ SCH (08:11)
[2020-09-05] MEDS: metFORMIN 500 MG TAB PO SCH ×2 (08:11→17:05)
[2020-09-05] MEDS: ALBUTEROL HFA INHALER INHALATION SCH ×4 (08:47→20:41)
[2020-09-05 09:28] LABS: African American GFR (CKD) 130.3 (60.0-200.0); Non-African American GFR(CKD) 112.4 (60.0-200.0)
[2020-09-05] MEDS ORDERED: ONDANSETRON 4 MG/2 ML VIAL IVP PRN (09:58)
[2020-09-05] MEDS ORDERED: HEPARIN SODIUM,PORCINE 5,000 UNIT/ML 1 ML VIAL IV ONE (11:28)
[2020-09-05] MEDS ORDERED: HEPARIN SODIUM,PORCINE 5,000 UNIT/ML 1 ML VIAL IV PRN (11:28)
[2020-09-05 11:56] LABS: Glucose,Whole Blood 192 mg/dL (75-99)
[2020-09-05] MEDS ORDERED: METOPROLOL TARTRATE 12.5 MG TAB PO STA (11:57)
[2020-09-05 12:12] LABS: Basophils % (A) 0 %; Eosinophils % (A) 0 %; HCT 39.6 % (34.0-46.0); HGB 12.3 gm/dL (11.4-16.0); Lymphocytes # (A) 0.9 k/uL (1.0-4.8); Lymphocytes % (A) 14 %; MCH 28.7 pg (25.0-35.0); MCV 92.3 fL (80.0-100.0); Monocytes # (A) 0.3 k/uL (0-1.0); Monocytes % (A) 5 %; Neutrophils # (A) 4.9 k/uL (1.3-7.7); Neutrophils % (A) 80 %; RBC 4.29 m/uL (3.80-5.40); RDW 13.7 % (11.5-15.5); WBC 6.2 k/uL (3.8-10.6)
[2020-09-05] MEDS: HEPARIN SOD,PORK IN 0.45% NACL 25,000 UNIT in 0.45% NACL 1 250ML.BAG IV SCH (12:12)
--- NOTE | 2020-09-05 14:03 | P.PN ---
Subjective Progress Note Date: 09/05/20 Principal diagnosis: Acute CoVID 19 pneumonitis This is a very pleasant 40-year-old female patient who follows with Dr. Pratt as her primary care provider. No significant past medical history. No pulmonary medications. She presented here to the emergency room today with complaints of increasing shortness of breath, cough congestion. Symptoms started approximately 1 week ago. She has had some fever or malaise and weakness as well. She is seen today in consultation in the emergency room. She is currently sitting up in the stretcher. Awake and alert in no acute distress. Initial O2 saturation on room air 89%. Currently in the 90s on 2 L/m per nasal cannula. T-max 103.4. Currently 100.1. Chest x-ray reveals bilateral patchy increased density within the lungs. White count 5.0. Hemoglobin 13.3. Sodium 137. Potassium 4.1. Creatinine 0.71. Initial lactic acid 2.5 currently 0.8. Glucose 177. LDH 835. C-reactive protein 33.9. Blood cultures pending. C nancy virus by PCR pending. She's been initiated on ceftriaxone, azithromycin, 0.9 normal saline at 100 ML's per hour. The patient is seen today 09/03/2020 in follow-up on the regular medical floor. She is currently resting comfortably in bed. Awake and alert in no acute distress. No real improvement today compared to yesterday. Still dyspneic with minimal exertion. Today's is a dry nonproductive cough. She is now requiring 5 L high flow nasal cannula to maintain O2 saturation in the 90s. She has been afebrile. Chest x-ray continues to show evidence of multifocal pneumonia. This is day 2 of from to severe. She is continued on Pepcid, Lovenox, zinc, vitamin A, vitamin C, melatonin. Blood glucose 224. The patient is seen today 09/04/2020 in follow-up on the regular medical floor. She is awake and alert in no acute distress. Breathing about the same today as compared to yesterday. No significant improvement yet. She is maintaining O2 saturations in the 90s on 2 L/m per nasal cannula. She's afebrile. Chest x-ray continues to show bilateral patchy densities. White count 4.5. Hemoglobin 12.0. Lymphocytes 0.6. Glucose 189. This is day #3 of Giovanniivir. She is cont inued on Pepcid, Lovenox, zinc, vitamin A, vitamin C, melatonin. Patient is seen today 09/05/2020 in follow-up on the regular medical floor. She is currently resting in bed. Still not back to her baseline. Still dyspneic with minimal exertion. Dry nonproductive cough. She is maintaining O2 sat urations in the high 80s low 90s on 4 L/m per nasal cannula. She's afebrile. This is day #4 of her Remdesivir treatment. White count 6.2. Hemoglobin 12.3. Creatinine 0.6. Glucose 192. Objective - Vital Signs Vital signs: Vital Signs Temp 98.2 F 09/05/20 07:00 Pulse 92 09/05/20 08:00 Resp 16 09/05/20 08:00 BP 123/82 09/05/20 07:00 Pulse Ox 94 L 09/05/20 11:48 Intake & Output 09/04/20 09/05/20 09/05/20 18:59 06:59 18:59 Intake Total 400 Balance 400 Intake: Oral 400 Other: Voiding Method Toilet Toilet # Voids 2 2 - Exam GENERAL EXAM: Alert, pleasant 40-year-old female patient, on 4 L nasal cannula, fairly comfortable in mild respiratory distress. HEAD: Normocephalic. EYES: Normal reaction of pupils, equal size. NOSE: Clear with pink turbinates. THROAT: No erythema or exudates. NECK: No masses, no JVD. CHEST: No chest wall deformity. LUNGS: Equal air entry with scattered rhonchi bilaterally. CVS: S1 and S2 normal with no audible murmur, regular rhythm. ABDOMEN: No hepatosplenomegaly, normal bowel sounds, no guarding or rigidity. SPINE: No scoliosis or deformity SKIN: No rashes CENTRAL NERVOUS SYSTEM: No focal deficits, tone is normal in all 4 extremities. EXTREMITIES: There is no peripheral edema. No clubbing, no cyanosis. Peripheral pulses are intact. - Labs CBC & Chem 7: 09/05/20 11:52 09/05/20 06:19 Labs: Abnormal Lab Results - Last 24 Hours (Table) 09/04/20 09/04/20 09/05/20 Range/Units 17:05 20:39 07:24 Lymphocytes # (1.0-4.8) k/uL POC Glucose (mg/dL) 222 H 211 H 158 H (75-99) mg/dL 09/05/20 09/05/20 Range/Units 11:52 11:55 Lymphocytes # 0.9 L (1.0-4.8) k/uL POC Glucose (mg/dL) 192 H (75-99) mg/dL Microbiology - Last 24 Hours (Table) 09/02/20 14:30 Blood Culture Gram Stain - Preliminary Blood Blood Culture - Preliminary Diphtheroid species 09/02/20 14:50 Blood Culture Gram Stain - Preliminary Blood Blood Culture - Preliminary Coagulase Negative Staph 09/02/20 12:27 Blood Culture - Preliminary Blood No Growth after 48 hours 09/02/20 14:50 Blood Culture - Final Blood 09/02/20 14:30 Blood Culture - Final Blood Assessment and Plan Assessment: 1 Acute hypoxic respiratory failure secondary to suspected CoVID 19 pneumonitis, initiated on Remdesivir 09/02/2020 2 Febrile illness secondary to above 3 Elevated inflammatory markers secondary to above Plan: The patient was seen and evaluated by Dr. Rocha She has been slow to progress. Remains hypoxic. We'll continue Remdesivir, dexamethasone, Lovenox Continue vitamin C, D, zinc, Pepcid, melatonin Covid 19 screen still pending from 09/02/2020 Continue isolation precautions Titrate the FiO2 as tolerated We will continue to follow and make further recommendations based on her clinical status I, the cosigning physician, performed a history & physical examination of the patient. Lungs sounds with bilateral scattered rhonchi. Maintaining good O2 saturations in the 90s on 4 L/m per nasal cannula. I discussed the assessment and plan of care with my nurse practitioner, Molly Clifford. I attest to the above note as dictated by her.
--- NOTE | 2020-09-05 16:00 | ECHOF ---
Referral Reason:AFIB MEASUREMENTS -------- HEIGHT: 172.7 cm WEIGHT: 113.4 kg BP: RVIDd: 2.4 cm (< 3.3) IVSd: 1.2 cm (0.6 - 1.1) LVIDd: 3.9 cm (3.9 - 5.3) LVPWd: 1.4 cm (0.6 - 1.1) IVSs: 2.1 cm LVIDs: 1.9 cm LVPWs: 2.0 cm Ao Diam: 3.0 cm (2.0 - 3.7) AV Cusp: 1.8 cm (1.5 - 2.6) LA Diam: 2.5 cm (2.7 - 3.8) RAP: 5.00 mmHg RVSP: 14.41 mmHg FINDINGS -------- Atrial fibrillation. This was a technically adequate study. The left ventricular size is normal. Left ventricular wall thickness is normal. Overall left vent ricular systolic function is normal with, an EF between 55 - 60 %. The right ventricle is normal in size. The left atrial size is normal. The right atrial size is normal. The aortic valve is trileaflet and appears structurally normal. The mitral valve is normal. There is trace mitral regurgitation. The tricuspid valve appears structurally normal. Mild tricuspid regurgitation present. Right vent ricular systolic pressure is normal at < 35 mmHg. There is no pulmonic regurgitation present. The aortic root size is normal. Normal inferior vena cava with normal inspiratory collapse consistent with estimated right atrial pre ssure of 5 mmHg. There is no pericardial effusion. CONCLUSIONS -------- 1. The left ventricular size is normal. 2. Left ventricular wall thickness is normal. 3. Overall left ventricular systolic function is normal with, an EF between 55 - 60 %. 4. There is trace mitral regurgitation. 5. Mild tricuspid regurgitation present. 6. There is no pericardial effusion. MANAGER MECHANICAL: Sylvie Carter RDCS
[2020-09-05 16:38] LABS: Glucose,Whole Blood 226 mg/dL (75-99)
--- NOTE | 2020-09-05 17:07 | P.CRDCN ---
History of Present Illness Consult date: 09/05/20 History of present illness: This is a 40-year-old female who was admitted to the hospital with complaints of increasing shortness of breath, cough and congestion for one week prior to admission. Patient has been hypoxic requiring oxygen had elevated temperatures. Patient is being treated for suspected COVID infection. Patient apparently went into tachycardia on the atrial fibrillation, this afternoon. A she was tachycardic with heart rate is in the 120s. Patient was not apparently examined because of suspected include infection. Most of the information is gathered from the nurses and also php consultant notes. Patient is being in and she is on heparin drip and also rate controlling medication with metoprolol . Patient may also be considered for Cardizem drip if necessary. An echocardiogram is done. This showed normal LV function. Continue current medical therapy. We'll follow Review of Systems As per the chart Past Medical History Past Medical History: Diabetes Mellitus History of Any Multi-Drug Resistant Organisms: None Reported Past Surgical History: Orthopedic Surgery Additional Past Surgical History / Comment(s): lt wrist Past Anesthesia/Blood Transfusion Reactions: No Reported Reaction Past Psychological History: No Psychological Hx Reported Smoking Status: Never smoker Past Alcohol Use History: None Reported Past Drug Use History: None Reported - Past Family History Father Family Medical History: Congestive Heart Failure (CHF) Additional Family Medical History / Comment(s): AAA Medications and Allergies Home Medications Medication Instructions Recorded Confirmed Type No Known Home Medications 09/02/20 09/02/20 History Allergies Allergy/AdvReac Type Severity Reaction Status Date / Time No Known Allergies Allergy Verified 09/02/20 15:38 Physical Exam Vitals: Vital Signs Temp Pulse Resp BP Pulse Ox 09/05/20 16:20 95 09/05/20 14:46 98.3 F 75 16 116/77 97 09/05/20 11:48 94 L 09/05/20 08:40 89 L 09/05/20 08:00 92 16 09/05/20 07:00 98.2 F 92 16 123/82 92 L 09/05/20 04:00 61 20 09/05/20 01:10 98.1 F 61 20 120/77 95 09/05/20 00:00 74 20 09/04/20 20:00 74 20 09/04/20 19:35 98.1 F 74 20 125/80 92 L Intake and Output 09/05/20 09/05/20 09/05/20 06:59 14:59 22:59 Intake Total 100 700 Balance 100 700 Intake: Intake, IV Titration 700 Amount Sodium Chloride 0.9% 1, 700 000 ml @ 100 mls/hr IV . Q10H [facility] Rx#:[id number] Oral 100 Other: Voiding Method Toilet Toilet # Voids 2 Not Examined. Information Is Gathered from Consultants Notes Results 09/05/20 11:52 09/05/20 06:19 Coagulation 09/05/20 Range/Units 11:52 PT 10.0 (9.0-12.0) sec APTT 25.0 (22.0-30.0) sec CBC 09/05/20 Range/Units 11:52 WBC 6.2 (3.8-10.6) k/uL RBC 4.29 (3.80-5.40) m/uL Hgb 12.3 (11.4-16.0) gm/dL Hct 39.6 (34.0-46.0) % Plt Count (150-450) k/uL Comprehensive Metabolic Panel 09/05/20 Range/Units 06:19 Creatinine 0.6 (0.6-1.5) mg/dL Current Medications Generic Name Dose Route Start Last Admin Trade Name Freq PRN Reason Stop Dose Admin Acetaminophen 650 mg 09/03/20 02:24 09/03/20 02:42 Acetaminophen Tab 325 Mg Tab PO 650 mg Q6HR PRN Administration Fever and/ or Pain Albuterol Sulfate 2 puff 09/02/20 17:00 09/05/20 16:19 Albuterol Hfa Inhaler INHALATION 2 puff RT-QID [facility] Administration Ascorbic Acid 500 mg 09/02/20 18:00 09/05/20 08:11 Ascorbic Acid 500 Mg Tab PO 500 mg DAILY [facility] Administration Cholecalciferol 1,000 unit 09/02/20 18:00 09/05/20 08:10 Cholecalciferol 1,000 Unit Tab PO 1,000 unit DAILY [facility] Administration Dexamethasone 6 mg 09/02/20 18:00 09/05/20 08:11 Dexamethasone 2 Mg Tab PO 6 mg DAILY [facility] Administration Diltiazem HCl 5 mg 09/05/20 11:18 Diltiazem Drip Bolus From Bag 1 Mg Soln IV 09/05/20 11:19 ONCE ONE Famotidine 20 mg 09/02/20 18:00 09/05/20 08:10 Famotidine 20 Mg Tab PO 20 mg DAILY [facility] Administration Heparin Sodium (Porcine) 0 unit 09/05/20 11:28 Heparin Sodium,Porcine 5,000 Unit/Ml 1 Ml Vial IV PER PROTOCOL PRN Low PTT Protocol Sodium Chloride 1,000 mls @ 100 mls/hr 09/02/20 14:30 09/05/20 04:41 Saline 0.9% IV Not Given .Q10H [facility] Remdesivir 100 mg/ Sodium 250 mls @ 250 mls/hr 09/03/20 21:00 09/04/20 20:50 Chloride IVPB 09/06/20 21:59 250 mls/hr HS [facility] Administration Diltiazem HCl 125 mg/ Sodium 125 mls @ 5 mls/hr 09/05/20 11:30 Chloride IV .Q24H [facility] 5 MG/HR Heparin Sodium/Sodium Chloride 250 mls @ 9.999 mls/hr 09/05/20 11:30 09/05/20 12:12 25,000 unit/ Sodium Chloride IV 8.818 units/kg/hr .Q24H [facility] 9.999 mls/hr Administration Protocol 8.818 UNITS/KG/HR Insulin Aspart 0 unit 09/04/20 21:00 09/05/20 12:11 Insulin Aspart (Novolog) 100 Unit/Ml Vial SQ 3 unit ACHS [facility] Administration Protocol Melatonin 5 mg 09/02/20 21:00 09/04/20 22:12 Melatonin 5 Mg Tablet PO 5 mg HS [facility] Administration Metformin HCl 1,000 mg 09/05/20 07:30 09/05/20 08:11 Metformin 500 Mg Tab PO 1,000 mg BID-W/MEALS [facility] Administration Miscellaneous Information 1 each 09/02/20 14:19 Pneumonia Protocol Utilized 1 Each Misc PO ONCE PRN Per Protocol Ondansetron HCl 4 mg 09/05/20 09:58 Ondansetron 4 Mg/2 Ml Vial IVP Q6HR PRN Nausea And Vomiting Zinc Sulfate 220 mg 09/02/20 18:00 09/05/20 08:11 Zinc Sulfate 220 Mg Cap PO 220 mg DAILY [facility] Administration Intake and Output 09/05/20 09/05/20 09/05/20 06:59 14:59 22:59 Intake Total 100 700 Balance 100 700 Intake: Intake, IV Titration 700 Amount Sodium Chloride 0.9% 1, 700 000 ml @ 100 mls/hr IV . Q10H [facility] Rx#:[id number] Oral 100 Other: Voiding Method Toilet Toilet # Voids 2 09/05/20 11:52 09/05/20 06:19 EKG Interpretations (text) Initial EKG showed sinus rhythm Assessment and Plan (1) Paroxysmal atrial fibrillation Current Visit: Yes Status: Acute Code(s): I48.0 - PAROXYSMAL ATRIAL FIBRILLATION SNOMED Code(s): 506611701 (2) Community acquired pneumonia Current Visit: Yes Status: Acute Code(s): J18.9 - PNEUMONIA, UNSPECIFIED ORGANISM SNOMED Code(s): 560086973 (3) Fever Current Visit: Yes Status: Acute Code(s): R50.9 - FEVER, UNSPECIFIED SNOMED Code(s): 454140730 (4) Hypoxia Current Visit: Yes Status: Acute Code(s): R09.02 - HYPOXEMIA SNOMED Code(s): 842104990 Plan: Continue heparin and the beta eylse. He is IV Cardizem if necessary. We'll follow
[2020-09-05 21:38] LABS: Glucose,Whole Blood 211 mg/dL (75-99)
[2020-09-05] MEDS: MELATONIN 5 MG TABLET PO SCH (21:42)
[2020-09-05] MEDS: REMDESIVIR (EUA) 100 MG in SODIUM CHLORIDE 0.9% 250 ML IVPB SCH (21:47)
[2020-09-05] MEDS ORDERED: DILTIAZEM DRIP BOLUS FROM BAG 1 MG SOLN IV ONE (22:00)
[2020-09-05] MEDS ORDERED: DILTIAZEM 125 MG in SODIUM CHLORIDE 0.9% 100 ML IV SCH (22:00)
--- NOTE | 2020-09-06 00:01 | P.PN ---
Subjective Progress Note Date: 09/05/20 Principal diagnosis: COVID-19 Pneumonia Ms. Ceron is a 40-year-old female with a past medical history of diabetes mellitus coming in with a chief complaint of shortness of breath, cough and congestion. She is currently being treated for coronavirus COVID-19 pneumonia. Patient's blood cultures from 09 02 showing coagulase-negative staph and diphtheroids, she got a dose of vancomycin that was discontinued by Dr. Pierce. On 09/05/2020 -this morning patient was tachycardic and went into atrial fibrillation. So cardiology has been consulted, patient received a dose of Lopressor and converted to sinus rhythm. She has been started on IV heparin and echocardiogram has been obtained showing EF of 55 to 60%. Currently patient is comfortably lying in bed, states that she still has difficulty in breathing with minimum activity. Denies having any chest pain. Does not report fever chills or rigors. On reviewing the vitals patient is requiring 15 L high flow oxygen to maintain sats above 90. Patient's labs from this morning showing white count of 6.2, hemoglobin 12.3, platelets could not be reported due to in vitro platelet agglutination. Active Medications Acetaminophen (Acetaminophen Tab 325 Mg Tab) 650 mg PO Q6HR PRN PRN Reason: Fever and/ or Pain Last Admin: 09/03/20 02:42 Dose: 650 mg Documented by: Albuterol Sulfate (Albuterol Hfa Inhaler) 2 puff INHALATION RT-QID [facility] Last Admin: 09/05/20 20:41 Dose: Not Given Documented by: Ascorbic Acid (Ascorbic Acid 500 Mg Tab) 500 mg PO DAILY [facility] Last Admin: 09/05/20 08:11 Dose: 500 mg Documented by: Cholecalciferol (Cholecalciferol 1,000 Unit Tab) 1,000 unit PO DAILY [facility] Last Admin: 09/05/20 08:10 Dose: 1,000 unit Documented by: Dexamethasone (Dexamethasone 2 Mg Tab) 6 mg PO DAILY [facility] Last Admin: 09/05/20 08:11 Dose: 6 mg Documented by: Famotidine (Famotidine 20 Mg Tab) 20 mg PO DAILY [facility] Last Admin: 09/05/20 08:10 Dose: 20 mg Documented by: Heparin Sodium (Porcine) (Heparin Sodium,Porcine 5,000 Unit/Ml 1 Ml Vial) 0 unit IV PER PROTOCOL PRN; Protocol PRN Reason: Low PTT Sodium Chloride (Saline 0.9%) 1,000 mls @ 100 mls/hr IV .Q10H [facility] Last Admin: 09/05/20 21:43 Dose: 100 mls/hr Documented by: Remdesivir 100 mg/ Sodium (Chloride) 250 mls @ 250 mls/hr IVPB HS [facility] Stop: 09/06/20 21:59 Last Admin: 09/05/20 21:47 Dose: 250 mls/hr Documented by: Heparin Sodium/Sodium Chloride (25,000 unit/ Sodium Chloride) 250 mls @ 9.999 mls/hr IV .Q24H [facility]; Protocol Last Admin: 09/05/20 12:12 Dose: 8.818 units/kg/hr, 9.999 mls/hr Documented by: Insulin Aspart (Insulin Aspart (Novolog) 100 Unit/Ml Vial) 0 unit SQ ACHS [facility]; Protocol Last Admin: 09/05/20 21:42 Dose: 4 unit Documented by: Melatonin (Melatonin 5 Mg Tablet) 5 mg PO [facility] Last Admin: 09/05/20 21:42 Dose: 5 mg Documented by: Metformin HCl (Metformin 500 Mg Tab) 1,000 mg PO BID-W/MEALS [facility] Last Admin: 09/05/20 17:05 Dose: Not Given Documented by: Miscellaneous Information (Pneumonia Protocol Utilized 1 Each Misc) 1 each PO ONCE PRN PRN Reason: Per Protocol Ondansetron HCl (Ondansetron 4 Mg/2 Ml Vial) 4 mg IVP Q6HR PRN PRN Reason: Nausea And Vomiting Zinc Sulfate (Zinc Sulfate 220 Mg Cap) 220 mg PO DAILY [facility] Last Admin: 09/05/20 08:11 Dose: 220 mg Documented by: Objective - Vital Signs Vital signs: Vital Signs Temp 98.3 F 09/05/20 14:46 Pulse 75 09/05/20 14:46 Resp 16 09/05/20 14:46 BP 116/77 09/05/20 14:46 Pulse Ox 95 09/05/20 16:20 Intake & Output 09/04/20 09/05/20 09/05/20 18:59 06:59 18:59 Intake Total 400 700 Balance 400 700 Intake: Intake, IV Titration 700 Amount Sodium Chloride 0.9% 1, 700 000 ml @ 100 mls/hr IV . Q10H [facility] Rx#:[id number] Oral 400 Other: Voiding Method Toilet Toilet # Voids 2 2 - Exam GENERAL: The patient is alert and oriented x3, not in any acute distress. Well developed, well nourished. HEENT: Pupils are round and equally reacting to light. EOMI. No scleral icterus. No conjunctival pallor. CARDIOVASCULAR: S1 and S2 present. No murmurs, rubs, or gallops. PULMONARY: Coarse breath sounds in all lung curtis. ABDOMEN: Soft, nontender, nondistended, normoactive bowel sounds. No palpable organomegaly. MUSCULOSKELETAL: No joint swelling or deformity. EXTREMITIES: No cyanosis, clubbing, or pedal edema. NEUROLOGICAL: Gross neurological examination did not reveal any focal deficits. SKIN: No rashes. no petechiae. - Labs CBC & Chem 7: 09/05/20 11:52 09/05/20 06:19 Labs: Abnormal Lab Results - Last 24 Hours (Table) 09/04/20 09/05/20 09/05/20 Range/Units 20:39 07:24 11:52 Lymphocytes # 0.9 L (1.0-4.8) k/uL POC Glucose (mg/dL) 211 H 158 H (75-99) mg/dL 09/05/20 09/05/20 Range/Units 11:55 16:37 Lymphocytes # (1.0-4.8) k/uL POC Glucose (mg/dL) 192 H 226 H (75-99) mg/dL Microbiology - Last 24 Hours (Table) 09/02/20 12:27 Blood Culture - Preliminary Blood No Growth after 72 hours 09/02/20 14:30 Blood Culture Gram Stain - Preliminary Blood Blood Culture - Preliminary Diphtheroid species 09/02/20 14:50 Blood Culture Gram Stain - Preliminary Blood Blood Culture - Preliminary Coagulase Negative Staph Assessment and Plan Assessment: ASSESSMENT Acute COVID-19 infection New onset atrial fibrillation converted to sinus Elevated inflammatory markers Obesity with BMI of 38 Type 2 diabetes mellitus PLAN: As the patient had new onset atrial fibrillation this morning, she has been started on IV heparin and her Lovenox has been discontinued. Patient had an echocardiogram showing ejection fraction of 55 to 60%. She converted to sinus rhythm. Cardiology on board following the patient. Continue with vitamin C, vitamin D, zinc supplements , dexamethasone, Pepcid for COVID-19 pneumonia. Patient is still requiring 15 L of high flow oxygen to maintain sats above 90. Continue with isolation precautions. Overall prognosis is guarded. Further recommendations to follow depending on the progress of the patient.
[2020-09-06 06:48] LABS: HCT 36.6 % (34.0-46.0); HGB 11.8 gm/dL (11.4-16.0); MCH 29.8 pg (25.0-35.0); MCHC 32.3 g/dL (31.0-37.0); MCV 92.2 fL (80.0-100.0); Mean Platelet Volume 9.9; RBC 3.97 m/uL (3.80-5.40); RDW 13.4 % (11.5-15.5); WBC 4.1 k/uL (3.8-10.6)
[2020-09-06 07:26] LABS: Lymphocytes # (M) 0.74 k/uL (1.0-4.8); Monocytes # (M) 0.57 k/uL (0-1.0); Neutrophils # (M) 2.79 k/uL (1.3-7.7); Neutrophils % (M) 68 %; Nucleated Red Blood Cells 0 /100 WBC (0-0); Total Cells Counted 100
[2020-09-06 07:41] LABS: Glucose,Whole Blood 157 mg/dL (75-99)
[2020-09-06] MEDS: metFORMIN 500 MG TAB PO SCH ×2 (07:46→14:54)
[2020-09-06] MEDS ORDERED: HEPARIN SODIUM,PORCINE 5,000 UNIT/ML 1 ML VIAL IV STA (07:47)
[2020-09-06] MEDS: ALBUTEROL HFA INHALER INHALATION SCH ×4 (07:49→20:51)
[2020-09-06] MEDS: dexAMETHasone 2 MG TAB PO SCH (08:02)
[2020-09-06] MEDS: ZINC SULFATE 220 MG CAP PO SCH (08:02)
[2020-09-06] MEDS: FAMOTIDINE 20 MG TAB PO SCH (08:02)
[2020-09-06] MEDS: INSULIN ASPART (NovoLOG) 100 UNIT/ML VIAL SQ SCH ×4 (08:02→21:22)
[2020-09-06 09:16] LABS: African American GFR (CKD) 130.3 (60.0-200.0); Non-African American GFR(CKD) 112.4 (60.0-200.0)
[2020-09-06] MEDS: ASCORBIC ACID 500 MG TAB PO SCH (09:16)
[2020-09-06] MEDS: CHOLECALCIFEROL 1,000 UNIT TAB PO SCH (09:17)
--- NOTE | 2020-09-06 10:33 | P.PN ---
Subjective Progress Note Date: 09/06/20 This 40-year-old female is admitted to the hospital for suspected COVID infection and pneumonia. We saw the patient yesterday because of atrial fibrillation. Patient was given beta elyse and converted back to sinus rhythm. She is also on heparin. She is feeling much better today. She is maintaining sinus rhythm. We will continue current medical therapy. Objective - Vital Signs Vital signs: Vital Signs Temp 97.8 F 09/06/20 07:00 Pulse 69 09/06/20 08:07 Resp 20 09/06/20 08:07 BP 109/71 09/06/20 07:00 Pulse Ox 90 L 09/06/20 07:00 Intake & Output 09/05/20 09/06/20 09/06/20 18:59 06:59 18:59 Intake Total 700 300 215.478 Balance 700 300 215.478 Intake: Intake, IV Titration 700 300 215.478 Amount Heparin Sod,Pork in 0.45% 215.478 NaCl 25,000 unit In 0.45 % NaCl 1 250ml.bag @ 8. 818 UNITS/KG/HR 9.999 mls /hr IV .Q24H [facility] Rx#: [id number] Sodium Chloride 0.9% 1, 700 300 000 ml @ 100 mls/hr IV . Q10H [facility] Rx#:[id number] Other: Voiding Method Toilet Toilet Toilet # Voids 2 - Exam Patient is not personally examined. Information is From the nurses - Labs CBC & Chem 7: 09/06/20 06:01 09/06/20 06:01 Labs: Abnormal Lab Results - Last 24 Hours (Table) 09/05/20 09/05/20 09/05/20 Range/Units 11:52 11:55 16:37 Lymphocytes # 0.9 L (1.0-4.8) k/uL Lymphocytes # (Manual) (1.0-4.8) k/uL APTT (22.0-30.0) sec POC Glucose (mg/dL) 192 H 226 H (75-99) mg/dL 09/05/20 09/05/20 09/06/20 Range/Units 17:35 21:37 06:01 Lymphocytes # (1.0-4.8) k/uL Lymphocytes # (Manual) 0.74 L (1.0-4.8) k/uL APTT 44.5 H (22.0-30.0) sec POC Glucose (mg/dL) 211 H (75-99) mg/dL 09/06/20 09/06/20 Range/Units 06:01 07:40 Lymphocytes # (1.0-4.8) k/uL Lymphocytes # (Manual) (1.0-4.8) k/uL APTT 37.0 H (22.0-30.0) sec POC Glucose (mg/dL) 157 H (75-99) mg/dL Microbiology - Last 24 Hours (Table) 09/05/20 06:19 Blood Culture - Preliminary Blood No Growth after 24 hours 09/02/20 14:30 Blood Culture Gram Stain - Final Blood Blood Culture - Final Diphtheroid species 09/02/20 14:50 Blood Culture Gram Stain - Final Blood Blood Culture - Final Coagulase Negative Staph 09/02/20 12:27 Blood Culture - Preliminary Blood No Growth after 72 hours Assessment and Plan (1) Paroxysmal atrial fibrillation Current Visit: Yes Status: Acute Code(s): I48.0 - PAROXYSMAL ATRIAL FIBRILLATION SNOMED Code(s): 577616611 (2) Community acquired pneumonia Current Visit: Yes Status: Acute Code(s): J18.9 - PNEUMONIA, UNSPECIFIED ORGANISM SNOMED Code(s): 345641937 (3) Fever Current Visit: Yes Status: Acute Code(s): R50.9 - FEVER, UNSPECIFIED SNOMED Code(s): 432766275 (4) Hypoxia Current Visit: Yes Status: Acute Code(s): R09.02 - HYPOXEMIA SNOMED Code(s): 525294879 Plan: Eloisa patient is feeling much better. She is maintaining sinus rhythm. Echo Cardigan showed normal LV function. Continue current medical therapy with beta elyse and heparin. May consider switching to by mouth anti-coagulation therapy from tomorrow
[2020-09-06 11:36] LABS: Glucose,Whole Blood 185 mg/dL (75-99)
[2020-09-06] MEDS: HEPARIN SOD,PORK IN 0.45% NACL 25,000 UNIT in 0.45% NACL 1 250ML.BAG IV SCH (11:48)
--- NOTE | 2020-09-06 15:00 | P.PN ---
Subjective Progress Note Date: 09/06/20 Principal diagnosis: Acute CoVID 19 pneumonitis This is a very pleasant 40-year-old female patient who follows with Dr. Pratt as her primary care provider. No significant past medical history. No pulmonary medications. She presented here to the emergency room today with complaints of increasing shortness of breath, cough congestion. Symptoms started approximately 1 week ago. She has had some fever or malaise and weakness as well. She is seen today in consultation in the emergency room. She is currently sitting up in the stretcher. Awake and alert in no acute distress. Initial O2 saturation on room air 89%. Currently in the 90s on 2 L/m per nasal cannula. T-max 103.4. Currently 100.1. Chest x-ray reveals bilateral patchy increased density within the lungs. White count 5.0. Hemoglobin 13.3. Sodium 137. Potassium 4.1. Creatinine 0.71. Initial lactic acid 2.5 currently 0.8. Glucose 177. LDH 835. C-reactive protein 33.9. Blood cultures pending. C nancy virus by PCR pending. She's been initiated on ceftriaxone, azithromycin, 0.9 normal saline at 100 ML's per hour. The patient is seen today 09/03/2020 in follow-up on the regular medical floor. She is currently resting comfortably in bed. Awake and alert in no acute distress. No real improvement today compared to yesterday. Still dyspneic with minimal exertion. Today's is a dry nonproductive cough. She is now requiring 5 L high flow nasal cannula to maintain O2 saturation in the 90s. She has been afebrile. Chest x-ray continues to show evidence of multifocal pneumonia. This is day 2 of from to severe. She is continued on Pepcid, Lovenox, zinc, vitamin A, vitamin C, melatonin. Blood glucose 224. The patient is seen today 09/04/2020 in follow-up on the regular medical floor. She is awake and alert in no acute distress. Breathing about the same today as compared to yesterday. No significant improvement yet. She is maintaining O2 saturations in the 90s on 2 L/m per nasal cannula. She's afebrile. Chest x-ray continues to show bilateral patchy densities. White count 4.5. Hemoglobin 12.0. Lymphocytes 0.6. Glucose 189. This is day #3 of Giovanniivir. She is cont inued on Pepcid, Lovenox, zinc, vitamin A, vitamin C, melatonin. Patient is seen today 09/05/2020 in follow-up on the regular medical floor. She is currently resting in bed. Still not back to her baseline. Still dyspneic with minimal exertion. Dry nonproductive cough. She is maintaining O2 sat urations in the high 80s low 90s on 4 L/m per nasal cannula. She's afebrile. This is day #4 of her Remdesivir treatment. White count 6.2. Hemoglobin 12.3. Creatinine 0.6. Glucose 192. The patient is seen today 09/06/2020 in follow-up on the regular medical floor. She is currently resting comfortably in bed. Breathing a bit easier today compared to yesterday. Coughing less. No fever, chills or night sweats. Requiring 8 L high flow nasal cannula to maintain O2 saturation in the low 90s. This is day #5 of her Remdesivir. She is continued on vitamin C, vitamin D, dexamethasone, melatonin zinc. She did develop an episode of atrial fibrillation yesterday treated with beta blockers and currently in sinus rhythm. She was initiated on a heparin drip. Echocardiogram reveals preserved left ventricular systolic function. Objective - Vital Signs Vital signs: Vital Signs Temp 97.8 F 09/06/20 07:00 Pulse 69 09/06/20 08:07 Resp 20 09/06/20 08:07 BP 109/71 09/06/20 07:00 Pulse Ox 90 L 09/06/20 07:00 Intake & Output 09/05/20 09/06/20 09/06/20 18:59 06:59 18:59 Intake Total 700 300 939.873 Balance 700 300 939.873 Intake: Intake, IV Titration 700 300 939.873 Amount Heparin Sod,Pork in 0.45% 239.873 NaCl 25,000 unit In 0.45 % NaCl 1 250ml.bag @ 8. 818 UNITS/KG/HR 9.999 mls /hr IV .Q24H [facility] Rx#: [id number] Sodium Chloride 0.9% 1, 700 300 700 000 ml @ 100 mls/hr IV . Q10H [facility] Rx#:[id number] Other: Voiding Method Toilet Toilet Toilet # Voids 2 - Exam GENERAL EXAM: Alert, pleasant 40-year-old female patient, on 8 L high flow nasal cannula, fairly comfortable in mild respiratory distress. HEAD: Normocephalic. EYES: Normal reaction of pupils, equal size. NOSE: Clear with pink turbinates. THROAT: No erythema or exudates. NECK: No masses, no JVD. CHEST: No chest wall deformity. LUNGS: Equal air entry with scattered rhonchi bilaterally. CVS: S1 and S2 normal with no audible murmur, regular rhythm. ABDOMEN: No hepatosplenomegaly, normal bowel sounds, no guarding or rigidity. SPINE: No scoliosis or deformity SKIN: No rashes CENTRAL NERVOUS SYSTEM: No focal deficits, tone is normal in all 4 extremities. EXTREMITIES: There is no peripheral edema. No clubbing, no cyanosis. Peripheral pulses are intact. - Labs CBC & Chem 7: 09/06/20 06:01 09/06/20 06:01 Labs: Abnormal Lab Results - Last 24 Hours (Table) 09/02/20 09/05/20 09/05/20 Range/Units 12:27 16:37 17:35 Lymphocytes # (Manual) (1.0-4.8) k/uL APTT 44.5 H (22.0-30.0) sec POC Glucose (mg/dL) 226 H (75-99) mg/dL Coronavirus (PCR) Detected A (Not Detected) 09/05/20 09/06/20 09/06/20 Range/Units 21:37 06:01 06:01 Lymphocytes # (Manual) 0.74 L (1.0-4.8) k/uL APTT 37.0 H (22.0-30.0) sec POC Glucose (mg/dL) 211 H (75-99) mg/dL Coronavirus (PCR) (Not Detected) 09/06/20 09/06/20 Range/Units 07:40 11:31 Lymphocytes # (Manual) (1.0-4.8) k/uL APTT (22.0-30.0) sec POC Glucose (mg/dL) 157 H 185 H (75-99) mg/dL Coronavirus (PCR) (Not Detected) Microbiology - Last 24 Hours (Table) 09/05/20 06:19 Blood Culture - Preliminary Blood No Growth after 24 hours 09/02/20 14:30 Blood Culture Gram Stain - Final Blood Blood Culture - Final Diphtheroid species 09/02/20 14:50 Blood Culture Gram Stain - Final Blood Blood Culture - Final Coagulase Negative Staph 09/02/20 12:27 Blood Culture - Preliminary Blood No Growth after 72 hours Assessment and Plan Assessment: 1 Acute hypoxic respiratory failure secondary to CoVID 19 pneumonitis, initiated on Remdesivir 09/02/2020 2 Febrile illness secondary to above 3 Elevated inflammatory markers secondary to above 4 Atrial fibrillation and is treated with beta blockers, currently in sinus rhythm, on a heparin drip and echocardiogram reveals preserved left ventricular systolic function Plan: The patient was seen and evaluated by Dr. Rocha The patient did develop atrial fibrillation yesterday, currently on a heparin drip, sinus rhythm Complete Remdesivir today Continue isolation precautions Titrate down the FiO2 as tolerated We will continue to follow and make further recommendations based on her clinical status I, the cosigning physician, performed a history & physical examination of the patient. Lungs sounds with bilateral scattered rhonchi. Maintaining good O2 saturations in the 90s on 8 L/m per nasal cannula. I discussed the assessment and plan of care with my nurse practitioner, Molly Clifford. I attest to the above note as dictated by her.
[2020-09-06] MEDS ORDERED: VANCOMYCIN TROUGH DUE 1 EACH MISC MISCELLANE ONE (16:00)
--- NOTE | 2020-09-06 16:08 | P.PN ---
Subjective Progress Note Date: 09/06/20 Principal diagnosis: COVID-19 Pneumonia Ms. Ceron is a 40-year-old female with a past medical history of diabetes mellitus coming in with a chief complaint of shortness of breath, cough and congestion. She is currently being treated for coronavirus COVID-19 pneumonia. Patient's blood cultures from 09 02 showing coagulase-negative staph and diphtheroids, she got a dose of vancomycin that was discontinued by Dr. Pierce. On 09/05/2020 -this morning patient was tachycardic and went into atrial fibrillation. So cardiology has been consulted, patient received a dose of Lopressor and converted to sinus rhythm. She has been started on IV heparin and echocardiogram has been obtained showing EF of 55 to 60%. Currently patient is comfortably lying in bed, states that she still has difficulty in breathing with minimum activity. Denies having any chest pain. Does not report fever chills or rigors. On reviewing the vitals patient is requiring 15 L high flow oxygen to maintain sats above 90. Patient's labs from this morning showing white count of 6.2, hemoglobin 12.3, platelets could not be reported due to in vitro platelet agglutination. On 09/06/2020 - patient's Covid test came back positive. Patient is sitting up in a chair by the bedside appears comfortable. She states that her breathing is much better and coughing is less compared to yesterday. Patient denies having any fevers chills or rigors. No complaints of swelling of her lower extremities. Patient denies having any chest pain or palpitations. No abdominal pain nausea vomiting or diarrhea. No dysuria or hematuria. On reviewing her vitals patient's blood pressure is 1 27 x 82, temperature 98.2, heart rate 70s, respiratory rate 15, saturating at 96% on 8 L of oxygen. Patient continues to be on IV heparin drip for an acute episode of atrial fibrillation that happened yesterday morning. Active Medications Acetaminophen (Acetaminophen Tab 325 Mg Tab) 650 mg PO Q6HR PRN PRN Reason: Fever and/ or Pain Last Admin: 09/03/20 02:42 Dose: 650 mg Documented by: Albuterol Sulfate (Albuterol Hfa Inhaler) 2 puff INHALATION RT-QID [facility] Last Admin: 09/06/20 11:30 Dose: 2 puff Documented by: Ascorbic Acid (Ascorbic Acid 500 Mg Tab) 500 mg PO DAILY [facility] Last Admin: 09/06/20 09:16 Dose: Not Given Documented by: Cholecalciferol (Cholecalciferol 1,000 Unit Tab) 1,000 unit PO DAILY [facility] Last Admin: 09/06/20 09:17 Dose: Not Given Documented by: Dexamethasone (Dexamethasone 2 Mg Tab) 6 mg PO DAILY [facility] Last Admin: 09/06/20 08:02 Dose: 6 mg Documented by: Famotidine (Famotidine 20 Mg Tab) 20 mg PO DAILY [facility] Last Admin: 09/06/20 08:02 Dose: 20 mg Documented by: Heparin Sodium (Porcine) (Heparin Sodium,Porcine 5,000 Unit/Ml 1 Ml Vial) 0 unit IV PER PROTOCOL PRN; Protocol PRN Reason: Low PTT Sodium Chloride (Saline 0.9%) 1,000 mls @ 100 mls/hr IV .Q10H [facility] Last Admin: 09/05/20 21:43 Dose: 100 mls/hr Documented by: Remdesivir 100 mg/ Sodium (Chloride) 250 mls @ 250 mls/hr IVPB [facility] Stop: 09/06/20 21:59 Last Admin: 09/05/20 21:47 Dose: 250 mls/hr Documented by: Heparin Sodium/Sodium Chloride (25,000 unit/ Sodium Chloride) 250 mls @ 9.999 mls/hr IV .Q24H [facility]; Protocol Last Admin: 09/06/20 11:48 Dose: 10.49 units/kg/hr, 11.9 mls/hr Documented by: Insulin Aspart (Insulin Aspart (Novolog) 100 Unit/Ml Vial) 0 unit SQ ACHS [facility]; Protocol Last Admin: 09/06/20 11:48 Dose: 3 unit Documented by: Melatonin (Melatonin 5 Mg Tablet) 5 mg PO [facility] Last Admin: 09/05/20 21:42 Dose: 5 mg Documented by: Metformin HCl (Metformin 500 Mg Tab) 1,000 mg PO BID-W/MEALS [facility] Last Admin: 09/06/20 14:54 Dose: Not Given Documented by: Miscellaneous Information (Pneumonia Protocol Utilized 1 Each Misc) 1 each PO ONCE PRN PRN Reason: Per Protocol Ondansetron HCl (Ondansetron 4 Mg/2 Ml Vial) 4 mg IVP Q6HR PRN PRN Reason: Nausea And Vomiting Zinc Sulfate (Zinc Sulfate 220 Mg Cap) 220 mg PO DAILY [facility] Last Admin: 09/06/20 08:02 Dose: 220 mg Documented by: Objective - Vital Signs Vital signs: Vital Signs Temp 98.2 F 09/06/20 15:00 Pulse 70 09/06/20 15:00 Resp 15 09/06/20 15:00 BP 127/82 09/06/20 15:00 Pulse Ox 96 09/06/20 15:00 Intake & Output 09/05/20 09/06/20 09/06/20 18:59 06:59 18:59 Intake Total 700 300 939.873 Balance 700 300 939.873 Intake: Intake, IV Titration 700 300 939.873 Amount Heparin Sod,Pork in 0.45% 239.873 NaCl 25,000 unit In 0.45 % NaCl 1 250ml.bag @ 8. 818 UNITS/KG/HR 9.999 mls /hr IV .Q24H [facility] Rx#: [id number] Sodium Chloride 0.9% 1, 700 300 700 000 ml @ 100 mls/hr IV . Q10H [facility] Rx#:[id number] Other: Voiding Method Toilet Toilet Toilet # Voids 2 - Exam GENERAL: The patient is alert and oriented x3, not in any acute distress. Well developed, well nourished. HEENT: Pupils are round and equally reacting to light. EOMI. No scleral icterus. No conjunctival pallor. CARDIOVASCULAR: S1 and S2 present. No murmurs, rubs, or gallops. PULMONARY: Coarse breath sounds in all lung curtis. No wheezing or crackles. ABDOMEN: Soft, nontender, nondistended, normoactive bowel sounds. No palpable organomegaly. MUSCULOSKELETAL: No joint swelling or deformity. EXTREMITIES: No cyanosis, clubbing, or pedal edema. NEUROLOGICAL: Gross neurological examination did not reveal any focal deficits. SKIN: No rashes. no petechiae. - Labs CBC & Chem 7: 09/06/20 06:01 09/06/20 06:01 Labs: Abnormal Lab Results - Last 24 Hours (Table) 09/02/20 09/05/20 09/05/20 Range/Units 12:27 16:37 17:35 Lymphocytes # (Manual) (1.0-4.8) k/uL APTT 44.5 H (22.0-30.0) sec POC Glucose (mg/dL) 226 H (75-99) mg/dL Coronavirus (PCR) Detected A (Not Detected) 09/05/20 09/06/20 09/06/20 Range/Units 21:37 06:01 06:01 Lymphocytes # (Manual) 0.74 L (1.0-4.8) k/uL APTT 37.0 H (22.0-30.0) sec POC Glucose (mg/dL) 211 H (75-99) mg/dL Coronavirus (PCR) (Not Detected) 09/06/20 09/06/20 09/06/20 Range/Units 07:40 11:31 14:26 Lymphocytes # (Manual) (1.0-4.8) k/uL APTT 53.2 H (22.0-30.0) sec POC Glucose (mg/dL) 157 H 185 H (75-99) mg/dL Coronavirus (PCR) (Not Detected) Microbiology - Last 24 Hours (Table) 09/02/20 12:27 Blood Culture - Preliminary Blood No Growth after 96 hours 09/05/20 06:19 Blood Culture - Preliminary Blood No Growth after 24 hours 09/02/20 14:30 Blood Culture Gram Stain - Final Blood Blood Culture - Final Diphtheroid species 09/02/20 14:50 Blood Culture Gram Stain - Final Blood Blood Culture - Final Coagulase Negative Staph Assessment and Plan Assessment: ASSESSMENT Acute COVID-19 infection New onset atrial fibrillation converted to sinus Elevated inflammatory markers Obesity with BMI of 38 Type 2 diabetes mellitus PLAN: Patient's Covid 19 PCR is positive today. As the patient had new onset atrial fibrillation yesterday, she has been started on IV heparin and her Lovenox has been discontinued. Patient had an echocardiogram showing ejection fraction of 55 to 60%. She converted to sinus rhythm. Cardiology on board following the patient. Patient was started on Remdesivir on 09/03/2020 . Continue with vitamin C, vitamin D, zinc supplements , dexamethasone, Pepcid for COVID-19 pneumonia. Patient is still requiring 8 L of high flow oxygen to maintain sats above 90. Continue with isolation precautions. Overall prognosis is guarded. Further recommendations to follow depending on the progress of the patient.
[2020-09-06 16:34] LABS: Glucose,Whole Blood 258 mg/dL (75-99)
[2020-09-06] MEDS: SODIUM CHLORIDE 0.9% 1,000 ML IV SCH ×2 (18:42→19:28)
[2020-09-06 21:18] LABS: Glucose,Whole Blood 184 mg/dL (75-99)
[2020-09-06] MEDS: MELATONIN 5 MG TABLET PO SCH (21:22)
[2020-09-06] MEDS: REMDESIVIR (EUA) 100 MG in SODIUM CHLORIDE 0.9% 250 ML IVPB SCH (21:22)
[2020-09-07] MEDS: SODIUM CHLORIDE 0.9% 1,000 ML IV SCH ×3 (02:07→20:56)
[2020-09-07 06:44] LABS: Basophils % (A) 0 %; Eosinophils # (A) 0.1 k/uL (0-0.7); Eosinophils % (A) 1 %; HGB 11.2 gm/dL (11.4-16.0); Lymphocytes # (A) 1.4 k/uL (1.0-4.8); Lymphocytes % (A) 30 %; MCH 27.2 pg (25.0-35.0); MCHC 30.2 g/dL (31.0-37.0); MCV 90.1 fL (80.0-100.0); Mean Platelet Volume 9.4; Monocytes # (A) 0.4 k/uL (0-1.0); Monocytes % (A) 8 %; Neutrophils # (A) 2.7 k/uL (1.3-7.7); Neutrophils % (A) 58 %; Platelet Count 190 k/uL (150-450); RBC 4.11 m/uL (3.80-5.40); RDW 13.7 % (11.5-15.5); WBC 4.7 k/uL (3.8-10.6)
[2020-09-07 07:21] LABS: Glucose,Whole Blood 179 mg/dL (75-99)
[2020-09-07] MEDS: HEPARIN SOD,PORK IN 0.45% NACL 25,000 UNIT in 0.45% NACL 1 250ML.BAG IV SCH (07:57)
[2020-09-07] MEDS: metFORMIN 500 MG TAB PO SCH ×2 (07:58→16:43)
[2020-09-07] MEDS: INSULIN ASPART (NovoLOG) 100 UNIT/ML VIAL SQ SCH ×4 (07:58→20:50)
[2020-09-07] MEDS: FAMOTIDINE 20 MG TAB PO SCH (07:59)
[2020-09-07] MEDS: dexAMETHasone 2 MG TAB PO SCH (07:59)
[2020-09-07] MEDS: ZINC SULFATE 220 MG CAP PO SCH (07:59)
[2020-09-07] MEDS: CHOLECALCIFEROL 1,000 UNIT TAB PO SCH (07:59)
[2020-09-07] MEDS: ASCORBIC ACID 500 MG TAB PO SCH ×2 (07:59→08:01)
[2020-09-07] MEDS: ALBUTEROL HFA INHALER INHALATION SCH ×4 (08:02→19:46)
--- NOTE | 2020-09-07 08:51 | XR ---
EXAMINATION TYPE: XR chest 1V portable DATE OF EXAM: 09/07/2020 COMPARISON: Prior chest x-ray 09/04/2020 HISTORY: Covid pneumonia TECHNIQUE: Single frontal view of the chest is obtained. FINDINGS: Bilateral patchy airspace disease persists. Lung volumes are low. There is no pneumothorax or pleural effusion. Heart size is stable. IMPRESSION: Findings consistent with patient's history of pneumonia.
[2020-09-07 10:10] LABS: African American GFR (CKD) 123.9 (60.0-200.0); Anion Gap 7.9 mmol/L (4.00-12.00); BUN/Creat Ratio 17.14 Ratio (12.00-20.00); Carbon Dioxide 27.1 mmol/L (21.6-31.8); Non-African American GFR(CKD) 106.9 (60.0-200.0); Potassium 3.5 mmol/L (3.5-5.5)
[2020-09-07] MEDS: APIXABAN 5 MG TAB PO SCH ×2 (10:28→20:50)
[2020-09-07 11:31] LABS: Glucose,Whole Blood 211 mg/dL (75-99)
--- NOTE | 2020-09-07 14:25 | P.PN ---
Progress Note - Text In order to avoid COVID exposure we did a review of the chart and did not enter the room. Telemetry tracings wee reviewed and she is maintaining sinus mechanism. Blood pressure 130/62. Laboratory data reviewed, CBC unremarkable, sodium 140, potassium 3.5, creatinine 0.7. Currently maintained on heparin infusion. Eliquis copay is $35/month. We will start the eliquis this morning. Stable from a cardiac perspective, nursing staff updated, follow up with Dr. Gudino on discharge, we will follow along as needed.
--- NOTE | 2020-09-07 16:42 | P.PN ---
Subjective Progress Note Date: 09/07/20 Principal diagnosis: Acute COVID 19 pneumonitis This is a very pleasant 40-year-old female patient who follows with Dr. Pratt as her primary care provider. No significant past medical history. No pulmonary medications. She presented here to the emergency room today with complaints of increasing shortness of breath, cough congestion. Symptoms started approximately 1 week ago. She has had some fever or malaise and weakness as well. She is seen today in consultation in the emergency room. She is currently sitting up in the stretcher. Awake and alert in no acute distress. Initial O2 saturation on room air 89%. Currently in the 90s on 2 L/m per nasal cannula. T-max 103.4. Currently 100.1. Chest x-ray reveals bilateral patchy increased density within the lungs. White count 5.0. Hemoglobin 13.3. Sodium 137. Potassium 4.1. Creatinine 0.71. Initial lactic acid 2.5 currently 0.8. Glucose 177. LDH 835. C-reactive protein 33.9. Blood cultures pending. C nancy virus by PCR pending. She's been initiated on ceftriaxone, azithromycin, 0.9 normal saline at 100 ML's per hour. The patient is seen today 09/03/2020 in follow-up on the regular medical floor. She is currently resting comfortably in bed. Awake and alert in no acute distress. No real improvement today compared to yesterday. Still dyspneic with minimal exertion. Today's is a dry nonproductive cough. She is now requiring 5 L high flow nasal cannula to maintain O2 saturation in the 90s. She has been afebrile. Chest x-ray continues to show evidence of multifocal pneumonia. This is day 2 of from to severe. She is continued on Pepcid, Lovenox, zinc, vitamin A, vitamin C, melatonin. Blood glucose 224. The patient is seen today 09/04/2020 in follow-up on the regular medical floor. She is awake and alert in no acute distress. Breathing about the same today as compared to yesterday. No significant improvement yet. She is maintaining O2 saturations in the 90s on 2 L/m per nasal cannula. She's afebrile. Chest x-ray continues to show bilateral patchy densities. White count 4.5. Hemoglobin 12.0. Lymphocytes 0.6. Glucose 189. This is day #3 of Giovanniivir. She is cont inued on Pepcid, Lovenox, zinc, vitamin A, vitamin C, melatonin. Patient is seen today 09/05/2020 in follow-up on the regular medical floor. She is currently resting in bed. Still not back to her baseline. Still dyspneic with minimal exertion. Dry nonproductive cough. She is maintaining O2 sat urations in the high 80s low 90s on 4 L/m per nasal cannula. She's afebrile. This is day #4 of her Remdesivir treatment. White count 6.2. Hemoglobin 12.3. Creatinine 0.6. Glucose 192. The patient is seen today 09/06/2020 in follow-up on the regular medical floor. She is currently resting comfortably in bed. Breathing a bit easier today compared to yesterday. Coughing less. No fever, chills or night sweats. Requiring 8 L high flow nasal cannula to maintain O2 saturation in the low 90s. This is day #5 of her Remdesivir. She is continued on vitamin C, vitamin D, dexamethasone, melatonin zinc. She did develop an episode of atrial fibrillation yesterday treated with beta blockers and currently in sinus rhythm. She was initiated on a heparin drip. Echocardiogram reveals preserved left ventricular systolic function. On 09/07/2020 patient seen in follow-up on general medical surgical floor, she has completed her course of Remdeisvir, Phalen better, still remains on 4 L of oxygen down from 6 L, her pulse ox of 93%, she has been afebrile for last few days. Today's labs have been reviewed, showing well until, 4.7, hemoglobin of 11.2, lymphocyte 1.4, electrolytes within normal limits, renal profile within normal limits. Today's chest x-ray shows low lung volumes, bilateral patchy airspace disease persistence. No chest pain, no palpitations, no nausea vomiting or diarrhea. Patient has been ambulating within the room, tolerating activity well. Objective - Vital Signs Vital signs: Vital Signs Temp 98.5 F 09/07/20 15:00 Pulse 81 09/07/20 15:00 Resp 17 09/07/20 15:00 BP 124/85 09/07/20 15:00 Pulse Ox 93 L 09/07/20 15:00 Intake & Output 09/06/20 09/07/20 09/07/20 18:59 06:59 18:59 Intake Total 939.873 300 386.195 Balance 939.873 300 386.195 Intake: Intake, IV Titration 939.873 300 386.195 Amount Heparin Sod,Pork in 0.45% 239.873 286.195 NaCl 25,000 unit In 0.45 % NaCl 1 250ml.bag @ 8. 818 UNITS/KG/HR 9.999 mls /hr IV .Q24H [facility] Rx#: [id number] Sodium Chloride 0.9% 1, 700 300 100 000 ml @ 100 mls/hr IV . Q10H [facility] Rx#:[id number] Other: Voiding Method Toilet Toilet Toilet # Voids 1 - Exam GENERAL EXAM: Alert, very pleasant, 40-year-old white female on 4 L of oxygen pulse ox 93% comfortable in no apparent distress. HEAD: Normocephalic/atraumatic. EYES: Normal reaction of pupils, equal size. Conjunctiva pink, sclera white. NOSE: Clear with pink turbinates. THROAT: No erythema or exudates. NECK: No masses, no JVD, no thyroid enlargement, no adenopathy. CHEST: No chest wall deformity. Symmetrical expansion. LUNGS: Equal air entry with bibasilar crackles, but no wheeze, rhonchi or dullness. CVS: Regular rate and rhythm, normal S1 and S2, no gallops, no murmurs, no rubs ABDOMEN: Soft, nontender. No hepatosplenomegaly, normal bowel sounds, no guarding or rigidity. EXTREMITIES: No clubbing, no edema, no cyanosis, 2+ pulses and upper and lower extremities. MUSCULOSKELETAL: Muscle strength and tone normal. SPINE: No scoliosis or deformity SKIN: No rashes CENTRAL NERVOUS SYSTEM: Alert and oriented -3. No focal deficits, tone is normal in all 4 extremities. PSYCHIATRIC: Alert and oriented -3. Appropriate affect. Intact judgment and insight. - Labs CBC & Chem 7: 09/07/20 05:49 09/07/20 05:49 Labs: Abnormal Lab Results - Last 24 Hours (Table) 09/06/20 09/07/20 09/07/20 Range/Units 21:14 05:49 05:49 Hgb 11.2 L (11.4-16.0) gm/dL MCHC 30.2 L (31.0-37.0) g/dL APTT (22.0-30.0) sec Glucose 182 H (70-110) mg/dL POC Glucose (mg/dL) 184 H (75-99) mg/dL Calcium 8.0 L (8.7-10.3) mg/dL 09/07/20 09/07/20 09/07/20 Range/Units 05:49 07:20 11:30 Hgb (11.4-16.0) gm/dL MCHC (31.0-37.0) g/dL APTT 44.4 H (22.0-30.0) sec Glucose (70-110) mg/dL POC Glucose (mg/dL) 179 H 211 H (75-99) mg/dL Calcium (8.7-10.3) mg/dL Microbiology - Last 24 Hours (Table) 09/02/20 12:27 Blood Culture - Preliminary Blood No Growth after 120 hours 09/05/20 06:19 Blood Culture - Preliminary Blood No Growth after 48 hours Assessment and Plan Plan: Assessment: 1 Acute hypoxic respiratory failure secondary to CoVID 19 pneumonitis, initiated on Remdesivir 09/02/2020 2 Febrile illness secondary to above, improved 3 Elevated inflammatory markers secondary to above 4 Atrial fibrillation and is treated with beta blockers, currently in sinus rhythm, on a heparin drip and echocardiogram reveals preserved left ventricular systolic function Plan: Continue oral Decadron, continue oral anticoagulation, continue Pepcid, and supplements, continue weaning FiO2, to keep O2 sat greater than 90%, encourage ablation, encouraged the patient to set up in the chair, self prone in bed. We'll continue to follow I performed a history & physical examination of the patient and discussed their management with my nurse practitioner, Noemi Gibbs. I reviewed the nurse practitioner's note and agree with the documented findings and plan of care. Lung sounds are positive for diffuse wheezes throughout the lung curtis. The findings and the impression was discussed with the patient. I attest to the documentation by the nurse practitioner. Time with Patient: Less than 30
[2020-09-07 17:03] LABS: Glucose,Whole Blood 268 mg/dL (75-99)
[2020-09-07 20:36] LABS: Glucose,Whole Blood 257 mg/dL (75-99)
[2020-09-07] MEDS: MELATONIN 5 MG TABLET PO SCH (20:50)
--- NOTE | 2020-09-08 00:37 | P.PN ---
Subjective Progress Note Date: 09/07/20 Principal diagnosis: COVID-19 Pneumonia Ms. Ceron is a 40-year-old female with a past medical history of diabetes mellitus coming in with a chief complaint of shortness of breath, cough and congestion. She is currently being treated for coronavirus COVID-19 pneumonia. Patient's blood cultures from 09 02 showing coagulase-negative staph and diphtheroids, she got a dose of vancomycin that was discontinued by Dr. Pierce. On 09/05/2020 -this morning patient was tachycardic and went into atrial fibrillation. So cardiology has been consulted, patient received a dose of Lopressor and converted to sinus rhythm. She has been started on IV heparin and echocardiogram has been obtained showing EF of 55 to 60%. Currently patient is comfortably lying in bed, states that she still has difficulty in breathing with minimum activity. Denies having any chest pain. Does not report fever chills or rigors. On reviewing the vitals patient is requiring 15 L high flow oxygen to maintain sats above 90. Patient's labs from this morning showing white count of 6.2, hemoglobin 12.3, platelets could not be reported due to in vitro platelet agglutination. On 09/06/2020 - patient's Covid test came back positive. Patient is sitting up in a chair by the bedside appears comfortable. She states that her breathing is much better and coughing is less compared to yesterday. Patient denies having any fevers chills or rigors. No complaints of swelling of her lower extremities. Patient denies having any chest pain or palpitations. No abdominal pain nausea vomiting or diarrhea. No dysuria or hematuria. On reviewing her vitals patient's blood pressure is 1 27 x 82, temperature 98.2, heart rate 70s, respiratory rate 15, saturating at 96% on 8 L of oxygen. Patient continues to be on IV heparin drip for an acute episode of atrial fibrillation that happened yesterday morning. On 09/07/2020 -patient is sitting up in a chair by the bedside appears to be in no acute distress. She states that difficulty in breathing is improved. But there is still mild exertional dyspnea and dry cough. Patient denies having any fevers chills or rigors. No chest pain or palpitations. No nausea vomiting or diarrhea. No dysuria or hematuria. On reviewing the vitals patient's T-max is 98.8, respiratory rate 17, heart rate 81, blood pressure 124/85, saturating at 93% on 4 L of nasal cannula. Patient's labs is morning white count of 4.7, hemoglobin 9.2, platelets 190. Sodium 140, potassium 3.3, chloride 105, bicarb 27, BUN 12, creatinine 0.70. Active Medications Acetaminophen (Acetaminophen Tab 325 Mg Tab) 650 mg PO Q6HR PRN PRN Reason: Fever and/ or Pain Last Admin: 09/03/20 02:42 Dose: 650 mg Documented by: Albuterol Sulfate (Albuterol Hfa Inhaler) 2 puff INHALATION RT-QID [facility] Last Admin: 09/07/20 19:46 Dose: 2 puff Documented by: Apixaban (Apixaban 5 Mg Tab) 5 mg PO BID [facility] Last Admin: 09/07/20 20:50 Dose: 5 mg Documented by: Ascorbic Acid (Ascorbic Acid 500 Mg Tab) 500 mg PO DAILY [facility] Last Admin: 09/07/20 08:01 Dose: Not Given Documented by: Cholecalciferol (Cholecalciferol 1,000 Unit Tab) 1,000 unit PO DAILY [facility] Last Admin: 09/07/20 07:59 Dose: 1,000 unit Documented by: Dexamethasone (Dexamethasone 2 Mg Tab) 6 mg PO DAILY [facility] Last Admin: 09/07/20 07:59 Dose: 6 mg Documented by: Famotidine (Famotidine 20 Mg Tab) 20 mg PO DAILY [facility] Last Admin: 09/07/20 07:59 Dose: 20 mg Documented by: Sodium Chloride (Saline 0.9%) 1,000 mls @ 100 mls/hr IV .Q10H [facility] Last Admin: 09/07/20 20:56 Dose: Not Given Documented by: Insulin Aspart (Insulin Aspart (Novolog) 100 Unit/Ml Vial) 0 unit SQ ACHS [facility]; Protocol Last Admin: 09/07/20 20:50 Dose: 6 unit Documented by: Melatonin (Melatonin 5 Mg Tablet) 5 mg PO HS [facility] Last Admin: 09/07/20 20:50 Dose: 5 mg Documented by: Metformin HCl (Metformin 500 Mg Tab) 1,000 mg PO BID-W/MEALS [facility] Last Admin: 09/07/20 16:43 Dose: Not Given Documented by: Miscellaneous Information (Pneumonia Protocol Utilized 1 Each Misc) 1 each PO ONCE PRN PRN Reason: Per Protocol Ondansetron HCl (Ondansetron 4 Mg/2 Ml Vial) 4 mg IVP Q6HR PRN PRN Reason: Nausea And Vomiting Zinc Sulfate (Zinc Sulfate 220 Mg Cap) 220 mg PO DAILY [facility] Last Admin: 09/07/20 07:59 Dose: 220 mg Documented by: Objective - Vital Signs Vital signs: Vital Signs Temp 98.1 F 09/07/20 07:00 Pulse 63 09/07/20 07:00 Resp 17 09/07/20 07:00 BP 130/62 09/07/20 07:00 Pulse Ox 93 L 09/07/20 07:00 Intake & Output 09/06/20 09/07/20 09/07/20 18:59 06:59 18:59 Intake Total 939.873 300 386.195 Balance 939.873 300 386.195 Intake: Intake, IV Titration 939.873 300 386.195 Amount Heparin Sod,Pork in 0.45% 239.873 286.195 NaCl 25,000 unit In 0.45 % NaCl 1 250ml.bag @ 8. 818 UNITS/KG/HR 9.999 mls /hr IV .Q24H [facility] Rx#: [id number] Sodium Chloride 0.9% 1, 700 300 100 000 ml @ 100 mls/hr IV . Q10H [facility] Rx#:[id number] Other: Voiding Method Toilet Toilet Toilet # Voids 1 - Exam GENERAL: The patient is alert and oriented x3, not in any acute distress. Well developed, well nourished. HEENT: No conjunctival pallor. CARDIOVASCULAR: S1 and S2 present. No murmurs, rubs, or gallops. PULMONARY: Coarse breath sounds in all lung curtis. No wheezing or crackles. ABDOMEN: Soft, nontender, nondistended, normoactive bowel sounds. No palpable organomegaly. MUSCULOSKELETAL: No joint swelling or deformity. EXTREMITIES: No cyanosis, clubbing, or pedal edema. NEUROLOGICAL: Gross neurological examination did not reveal any focal deficits. SKIN: No rashes. no petechiae. - Labs CBC & Chem 7: 09/07/20 05:49 09/07/20 05:49 Labs: Abnormal Lab Results - Last 24 Hours (Table) 09/02/20 09/06/20 09/06/20 Range/Units 12:27 14:26 16:31 Hgb (11.4-16.0) gm/dL MCHC (31.0-37.0) g/dL APTT 53.2 H (22.0-30.0) sec Glucose (70-110) mg/dL POC Glucose (mg/dL) 258 H (75-99) mg/dL Calcium (8.7-10.3) mg/dL Coronavirus (PCR) Detected A (Not Detected) 09/06/20 09/07/20 09/07/20 Range/Units 21:14 05:49 05:49 Hgb 11.2 L (11.4-16.0) gm/dL MCHC 30.2 L (31.0-37.0) g/dL APTT (22.0-30.0) sec Glucose 182 H (70-110) mg/dL POC Glucose (mg/dL) 184 H (75-99) mg/dL Calcium 8.0 L (8.7-10.3) mg/dL Coronavirus (PCR) (Not Detected) 09/07/20 09/07/20 09/07/20 Range/Units 05:49 07:20 11:30 Hgb (11.4-16.0) gm/dL MCHC (31.0-37.0) g/dL APTT 44.4 H (22.0-30.0) sec Glucose (70-110) mg/dL POC Glucose (mg/dL) 179 H 211 H (75-99) mg/dL Calcium (8.7-10.3) mg/dL Coronavirus (PCR) (Not Detected) Microbiology - Last 24 Hours (Table) 09/05/20 06:19 Blood Culture - Preliminary Blood No Growth after 48 hours 09/02/20 12:27 Blood Culture - Preliminary Blood No Growth after 96 hours Assessment and Plan Assessment: ASSESSMENT Acute COVID-19 infection New onset atrial fibrillation converted to sinus Elevated inflammatory markers Obesity with BMI of 38 Type 2 diabetes mellitus PLAN: Patient's Covid 19 PCR is positive. As the patient had new onset atrial fibrillation, she has been started on IV heparin. Today she is started on Eliquis. Patient had an echocardiogram showing ejection fraction of 55 to 60%. She converted to sinus rhythm. Cardiology on board following the patient. Patient was started on Remdesivir on 09/03/2020 . Continue with vitamin C, vitamin D, zinc supplements , dexamethasone and Pepcid for COVID-19 pneumonia. Patient is requiring only 3-4 L of high flow oxygen to maintain sats above 90, better than yesterday. Continue with isolation precautions. Overall prognosis is guarded. Further recommendations to follow depending on the progress of the patient.
[2020-09-08 07:05] LABS: Glucose,Whole Blood 156 mg/dL (75-99)
[2020-09-08] MEDS: CHOLECALCIFEROL 1,000 UNIT TAB PO SCH (07:36)
[2020-09-08] MEDS: ZINC SULFATE 220 MG CAP PO SCH (07:36)
[2020-09-08] MEDS: dexAMETHasone 2 MG TAB PO SCH (07:36)
[2020-09-08] MEDS: INSULIN ASPART (NovoLOG) 100 UNIT/ML VIAL SQ SCH ×2 (07:36→12:48)
[2020-09-08] MEDS: FAMOTIDINE 20 MG TAB PO SCH (07:36)
[2020-09-08] MEDS: APIXABAN 5 MG TAB PO SCH (07:37)
[2020-09-08] MEDS: ASCORBIC ACID 500 MG TAB PO SCH (07:37)
[2020-09-08 08:07] LABS: Basophils % (A) 1 %; Eosinophils # (A) 0.1 k/uL (0-0.7); Eosinophils % (A) 1 %; HCT 36.2 % (34.0-46.0); Lymphocytes # (A) 1.3 k/uL (1.0-4.8); Lymphocytes % (A) 27 %; MCH 29.6 pg (25.0-35.0); MCHC 33.1 g/dL (31.0-37.0); MCV 89.4 fL (80.0-100.0); Mean Platelet Volume 9.6; Monocytes # (A) 0.3 k/uL (0-1.0); Monocytes % (A) 6 %; Neutrophils # (A) 3.1 k/uL (1.3-7.7); Neutrophils % (A) 63 %; Platelet Count 148 k/uL (150-450); RBC 4.05 m/uL (3.80-5.40); RDW 13.4 % (11.5-15.5)
[2020-09-08] MEDS: ALBUTEROL HFA INHALER INHALATION SCH ×3 (08:35→16:14)
[2020-09-08] MEDS: SODIUM CHLORIDE 0.9% 1,000 ML IV SCH (09:37)
[2020-09-08 11:15] LABS: African American GFR (CKD) 105.4 (60.0-200.0); Anion Gap 9.5 mmol/L (4.00-12.00); BUN/Creat Ratio 17.5 Ratio (12.00-20.00); C Reactive Protein 1.2 mg/dL (0.0-0.8); Calcium 8.4 mg/dL (8.7-10.3); Carbon Dioxide 27.5 mmol/L (21.6-31.8); Ferritin 103.6 ng/mL (10.0-291.0); Non-African American GFR(CKD) 90.9 (60.0-200.0); Potassium 3.4 mmol/L (3.5-5.5)
[2020-09-08 11:47] LABS: Glucose,Whole Blood 207 mg/dL (75-99)
--- NOTE | 2020-09-08 14:58 | CDI ---
Documentation Clarification Form Date: 09/08/2020 02:44:52 PM From: Sameera BlasVIOLETA lees, CCDS Admit Date: 09/02/2020 02:19:00 PM Patient Name: Rhoda Ceron Visit Number: [id number] Discharge Date: ATTENTION: The Clinical Documentation Specialists (CDI) and [facility] Coding Staff appreciate your assistance in clarifying documentation. Please respond to the clarification below the line at the bottom and electronically sign. The CDI & [facility] Coding staff will review the response and follow-up if needed. Please note: Queries are made part of the Legal Health Record. If you have any questions, please contact the author of this message via ITS. Dr. Radha Buckley or Dr. Majano Sheet: Patient is admitted with COVID-19 Pneumonia, Acute Hypoxic Respiratory Failure, New Onset Atrial Fibrillation. History/Risk Factors: Obesity w/BMI 38, DM II Clinical Indicators: Presented to the ED on 09/02 with fever, SOB, cough, congestion, fever, malaise, weakness. Diagnosed with pneumonia and to rule out COVID-19. VS 09/02: T 103.4^, P 117^, R 28^ (sob, cough, tachypnea); BP 131/75, PO 89 RA - 94 2Lnc LAB: Lymph 0.6*, glucose 177^, AST 65^, ALT 58^, Lactate Dehydrogenase 835^, CRP 33.9^. 09/02 COVID: Positive RAD: 09/02 CXR: Could be pneumonia. Treatment: IV Azithromycin, IV rocephin, IV fluid 1,000 mls @ 999 mls/hr x2, INH Albuterol, IV Remdesivir, IV Vancomycin, IV Heparin. In your professional opinion, please clarify if these findings signify one of the following conditions, whether the condition is POA, and cause, if known: Sepsis o Severe Sepsis, please specify associated condition: Other, please specify Unable to determine Present on Admission: Yes or No Identify the (suspected) organism (Last Revision: January 2018) no sepsis MTDD
[2020-09-08 15:14] VITALS: BP 108/68; PULSE 77; RESP 17; TEMP 98.1
--- NOTE | 2020-09-08 16:38 | P.PN ---
Subjective Progress Note Date: 09/08/20 Principal diagnosis: Acute COVID 19 pneumonitis This is a very pleasant 40-year-old female patient who follows with Dr. Pratt as her primary care provider. No significant past medical history. No pulmonary medications. She presented here to the emergency room today with complaints of increasing shortness of breath, cough congestion. Symptoms started approximately 1 week ago. She has had some fever or malaise and weakness as well. She is seen today in consultation in the emergency room. She is currently sitting up in the stretcher. Awake and alert in no acute distress. Initial O2 saturation on room air 89%. Currently in the 90s on 2 L/m per nasal cannula. T-max 103.4. Currently 100.1. Chest x-ray reveals bilateral patchy increased density within the lungs. White count 5.0. Hemoglobin 13.3. Sodium 137. Potassium 4.1. Creatinine 0.71. Initial lactic acid 2.5 currently 0.8. Glucose 177. LDH 835. C-reactive protein 33.9. Blood cultures pending. C nancy virus by PCR pending. She's been initiated on ceftriaxone, azithromycin, 0.9 normal saline at 100 ML's per hour. The patient is seen today 09/03/2020 in follow-up on the regular medical floor. She is currently resting comfortably in bed. Awake and alert in no acute distress. No real improvement today compared to yesterday. Still dyspneic with minimal exertion. Today's is a dry nonproductive cough. She is now requiring 5 L high flow nasal cannula to maintain O2 saturation in the 90s. She has been afebrile. Chest x-ray continues to show evidence of multifocal pneumonia. This is day 2 of from to severe. She is continued on Pepcid, Lovenox, zinc, vitamin A, vitamin C, melatonin. Blood glucose 224. The patient is seen today 09/04/2020 in follow-up on the regular medical floor. She is awake and alert in no acute distress. Breathing about the same today as compared to yesterday. No significant improvement yet. She is maintaining O2 saturations in the 90s on 2 L/m per nasal cannula. She's afebrile. Chest x-ray continues to show bilateral patchy densities. White count 4.5. Hemoglobin 12.0. Lymphocytes 0.6. Glucose 189. This is day #3 of Giovanniivir. She is cont inued on Pepcid, Lovenox, zinc, vitamin A, vitamin C, melatonin. Patient is seen today 09/05/2020 in follow-up on the regular medical floor. She is currently resting in bed. Still not back to her baseline. Still dyspneic with minimal exertion. Dry nonproductive cough. She is maintaining O2 sat urations in the high 80s low 90s on 4 L/m per nasal cannula. She's afebrile. This is day #4 of her Remdesivir treatment. White count 6.2. Hemoglobin 12.3. Creatinine 0.6. Glucose 192. The patient is seen today 09/06/2020 in follow-up on the regular medical floor. She is currently resting comfortably in bed. Breathing a bit easier today compared to yesterday. Coughing less. No fever, chills or night sweats. Requiring 8 L high flow nasal cannula to maintain O2 saturation in the low 90s. This is day #5 of her Remdesivir. She is continued on vitamin C, vitamin D, dexamethasone, melatonin zinc. She did develop an episode of atrial fibrillation yesterday treated with beta blockers and currently in sinus rhythm. She was initiated on a heparin drip. Echocardiogram reveals preserved left ventricular systolic function. On 09/07/2020 patient seen in follow-up on general medical surgical floor, she has completed her course of Remdeisvir, Phalen better, still remains on 4 L of oxygen down from 6 L, her pulse ox of 93%, she has been afebrile for last few days. Today's labs have been reviewed, showing well until, 4.7, hemoglobin of 11.2, lymphocyte 1.4, electrolytes within normal limits, renal profile within normal limits. Today's chest x-ray shows low lung volumes, bilateral patchy airspace disease persistence. No chest pain, no palpitations, no nausea vomiting or diarrhea. Patient has been ambulating within the room, tolerating activity well. On 09/08/2020 patient seen in follow-up on the general medical surgical floor, patient continues to improve, she is down to 2 L supplemental oxygen, home oxygen assessment was performed, room air pulse ox is 92%, she's been afebrile, hemodynamically stable, breathing comfortably, no cough, no complaints of chest pain, no nausea or vomiting, she's been tolerating ambulation to the bathroom and back, today's labs have been reviewed, CRP is down to 1.2, LDH is down to within normal range, 222, pro calcitonin level is negative at 0.06. Remains on oral Decadron, she completed her treatment with Remdesivir Objective - Vital Signs Vital signs: Vital Signs Temp 98.1 F 09/08/20 15:00 Pulse 77 09/08/20 15:00 Resp 17 09/08/20 15:00 BP 108/68 09/08/20 15:00 Pulse Ox 92 L 09/08/20 15:00 Intake & Output 09/07/20 09/08/20 09/08/20 18:59 06:59 18:59 Intake Total 386.195 300 580 Balance 386.195 300 580 Intake: Intake, IV Titration 386.195 300 Amount Heparin Sod,Pork in 0.45% 286.195 NaCl 25,000 unit In 0.45 % NaCl 1 250ml.bag @ 8. 818 UNITS/KG/HR 9.999 mls /hr IV .Q24H [facility] Rx#: [id number] Sodium Chloride 0.9% 1, 100 300 000 ml @ 100 mls/hr IV . Q10H [facility] Rx#:[id number] Oral 580 Other: Voiding Method Toilet Toilet # Voids 2 - Exam GENERAL EXAM: Alert, very pleasant, 40-year-old white female on 4 L of oxygen pulse ox 93% comfortable in no apparent distress. HEAD: Normocephalic/atraumatic. EYES: Normal reaction of pupils, equal size. Conjunctiva pink, sclera white. NOSE: Clear with pink turbinates. THROAT: No erythema or exudates. NECK: No masses, no JVD, no thyroid enlargement, no adenopathy. CHEST: No chest wall deformity. Symmetrical expansion. LUNGS: Equal air entry with bibasilar crackles, but no wheeze, rhonchi or dullness. CVS: Regular rate and rhythm, normal S1 and S2, no gallops, no murmurs, no rubs ABDOMEN: Soft, nontender. No hepatosplenomegaly, normal bowel sounds, no guarding or rigidity. EXTREMITIES: No clubbing, no edema, no cyanosis, 2+ pulses and upper and lower extremities. MUSCULOSKELETAL: Muscle strength and tone normal. SPINE: No scoliosis or deformity SKIN: No rashes CENTRAL NERVOUS SYSTEM: Alert and oriented -3. No focal deficits, tone is normal in all 4 extremities. PSYCHIATRIC: Alert and oriented -3. Appropriate affect. Intact judgment and insight. - Labs CBC & Chem 7: 09/08/20 06:49 09/08/20 06:49 Labs: Abnormal Lab Results - Last 24 Hours (Table) 09/07/20 09/07/20 09/08/20 Range/Units 17:02 20:35 06:49 Plt Count 148 L (150-450) k/uL Potassium (3.5-5.5) mmol/L Glucose (70-110) mg/dL POC Glucose (mg/dL) 268 H 257 H (75-99) mg/dL Calcium (8.7-10.3) mg/dL C-Reactive Protein (0.0-0.8) mg/dL 09/08/20 09/08/20 09/08/20 Range/Units 06:49 07:04 11:45 Plt Count (150-450) k/uL Potassium 3.4 L (3.5-5.5) mmol/L Glucose 162 H (70-110) mg/dL POC Glucose (mg/dL) 156 H 207 H (75-99) mg/dL Calcium 8.4 L (8.7-10.3) mg/dL C-Reactive Protein 1.2 H (0.0-0.8) mg/dL Microbiology - Last 24 Hours (Table) 09/02/20 12:27 Blood Culture - Final Blood No Growth after 144 hours 09/05/20 06:19 Blood Culture - Preliminary Blood No Growth after 72 hours Assessment and Plan Plan: Assessment: 1 Acute hypoxic respiratory failure secondary to CoVID 19 pneumonitis, initiated on Remdesivir 09/02/2020 2 Febrile illness secondary to above, improved 3 Elevated inflammatory markers secondary to above 4 Atrial fibrillation and is treated with beta blockers, currently in sinus r hythm, on a heparin drip and echocardiogram reveals preserved left ventricular systolic function Plan: Continue current medical treatment, patient is feeling significantly better, no fever or chills, inflammatory markers are trending down, she has completed her treatment with Remdesivir, patient can be considered for discharge home from pulmonary perspective, she can complete outpatient course of oral Decadron for a total of 10 day course including the hospital stay, can continue on vitamin C and Zinc supplements. I performed a history & physical examination of the patient and discussed their management with my nurse practitioner, Noemi Gibbs. I reviewed the nurse practitioner's note and agree with the documented findings and plan of care. Lung sounds are positive for diffuse wheezes throughout the lung curtis. The findings and the impression was discussed with the patient. I attest to the documentation by the nurse practitioner. Time with Patient: Less than 30
--- NOTE | 2020-09-08 23:13 | P.DS ---
Providers Date of admission: 09/02/20 14:19 Attending physician: Fransisca Cerrato Consults: 09/02/20 15:15 Consult Physician Routine Consulting Provider: Edison Rocha Consult Reason/Comments: covid Do you want consulting provider notified?: Yes 09/05/20 10:22 Consult Physician Routine Consulting Provider: [facility] Consult Reason/Comments: new onset A fib Do you want consulting provider notified?: Yes Primary care physician: Stated None Hospital Course: Diagnoses: -Acute covid infection with bilateral pneumonia -Acute hypoxic respiratory failure secondary to above. Patient will be discharged on oxygen -Increase inflammatory markers -Atrial fibrillation with RVR -positive blood culture with coagulase negative staph and diphtheroid species, mostly contamination, repeat blood culture is showing no growth after 72 hours. Patient febrile for several days with no leukocytosis -Hyperglycemia, and review of history of diabetes mellitus Hospital course: This is a pleasant 40 years old female with past medical history of diabetes mellitus not on home medication. Presents to the emergency room with fever and shortness of breath with chest congestion. Vitas looks stable currently however patient was febrile with 103.4 on admission . Currently her oxygen saturation is 92% and 2-3 L oxygen via nasal cannula. Patient has been evaluated by consignee.Chest x-ray showing multifocal pneumonia.patient is a started on Remdesivir, dexamethasone and zinc sulfate. Patient showed interval improvement in her symptoms, she remained clinically stable and patient was cleared for discharge by pulmonary service but she will need oxygen upon discharge. Also patient developed A. fib with RVR, patient was started on beta elyse and Eliquis. Echocardiogram showed normal LV function. Patient was cleared for discharge by engine service repairer. The culprit for Eliquis is $10 and patient agrees with that besides one month coupon a provided for the patient upon discharge. Patient was cleared for discharge by both cardiology and pulmonary services Problems and management plan were discussed with the patient and he verbalized understanding and acceptance Patient was found stable and can be discharged home however he needs follow-up as an outpatient. Patient was instructed to follow up with PCP within one week and patient agrees. Patient was instructed to follow up with Dr. Ac in 4-6 weeks, with Dr. Gudino in 2 weeks and she agrees Physical exam Gen: patient is a AAOx3, no distress CVS: S1-S2, RRR, no murmur Lungs: B/L CTA, no wheezing Abdomen: soft, no distention, no tenderness, positive bowel sounds Extremity: no leg edema or induration Time spent more than 35 minutes Patient Condition at Discharge: Fair Plan - Discharge Summary New Discharge Prescriptions: New Apixaban [Eliquis] 5 mg PO BID #180 tab Dexamethasone [Decadron] 6 mg PO DAILY 3 Days #3 tablet Zinc Sulfate [Orazinc] 220 mg PO DAILY #21 cap Famotidine [Pepcid] 20 mg PO DAILY 7 Days #7 tab Acetaminophen Tab [Tylenol] 650 mg PO Q6HR PRN tab PRN Reason: Fever And/ Or Pain Albuterol Inhaler [Ventolin Hfa Inhaler] 2 puff INHALATION RT-QID #1 puff Ascorbic Acid [Vitamin C] 500 mg PO DAILY #21 tab Discharge Medication List Apixaban [Eliquis] 5 mg PO BID #180 tab 09/07/20 [Rx] Acetaminophen Tab [Tylenol] 650 mg PO Q6HR PRN tab 09/08/20 [Rx] Albuterol Inhaler [Ventolin Hfa Inhaler] 2 puff INHALATION RT-QID #1 puff 09/08/20 [Rx] Ascorbic Acid [Vitamin C] 500 mg PO DAILY #21 tab 09/08/20 [Rx] Dexamethasone [Decadron] 6 mg PO DAILY 3 Days #3 tablet 09/08/20 [Rx] Famotidine [Pepcid] 20 mg PO DAILY 7 Days #7 tab 09/08/20 [Rx] Zinc Sulfate [Orazinc] 220 mg PO DAILY #21 cap 09/08/20 [Rx] Follow up Appointment(s)/Referral(s): [facility],Equipment [NON-STAFF] - (*Please call [facility] once home to arrange delivery of oxygen concentrator. [facility] will deliver a portable oxygen tank to the bedside before discharge. ) Hitesh Ac DO [Doctor of Osteopathic Medicine] - 09/28/20 2:45 pm (With Osmany Lyons MD [REFERRING] - 1-2 Days Chanell Gudino MD [STAFF PHYSICIAN] - 2 Weeks (office will call with appointment time) Patient Instructions/Handouts: Viral Pneumonia (DC), Using Oxygen at Home (DC) Activity/Diet/Wound Care/Special Instructions: Eliquis: patient given $10 copay card and first month is free at [facility]. Discharge Disposition: HOME SELF-CARE
== END 2020-09-08 17:18 | disposition home or self-care (01) | DRG 177 ==
LOC: EC 11:57 → 4SSUR 14:19
PROVIDERS: ADMIT Internal Medicine; ATTEND Internal Medicine
PROC: XW033E5 Introduction of Remdesivir Anti-infective into Peripheral Vein, Percutaneous Approach, New Technology Group 5 (ICD-10-PCS; principal; 2020-09-02)
DX: U07.1 COVID-19 (principal); J12.89 Other viral pneumonia; J96.01 Acute respiratory failure with hypoxia; E66.9 Obesity, unspecified; E11.65 Type 2 diabetes mellitus with hyperglycemia; I48.0 Paroxysmal atrial fibrillation; D72.810 Lymphocytopenia; Z68.38 Body mass index [BMI] 38.0-38.9, adult; Z98.890 Other specified postprocedural states; Z82.49 Family history of ischemic heart disease and other diseases of the circulatory system
CPT/HCPCS: 36415; 71045; 80048; 80053; 82565; 82728; 83036; 83605; 83615; 83735; 84145; 85025; 85379; 85610; 85730; 86140; 87040; 93005; 93306; 94640; 94760; 96361; 96365; 96367; 96372; 99291